=== PATIENT | female | born 1965 | race Caucasian/White ===

== ENCOUNTER 2024-09-11 08:06 | Outpatient (AMB) | payer OTHER, SELFPAY ==
--- OUTSIDE RECORDS SUMMARY | 2024-09-11 08:11 | XMS_ITS | Continuity of Care Document ---
Author Organization [facility] Address [address] [facility] [address] [place], [place] Phone [phone] Care Team Providers Care Oven Equipment Repairer Name Role Phone Radha Randle MD Care Team Information Receiv er Unavailable MCKENZIE AGUILAR M.D. Care Team Information Rec eiver Unavailable Radha Randle MD Primary Care Physician Unava ilable Problems Active Problems Provider Date Simple goiter Mckenzie Aguilar M.D. Onset: 0 02/14/2024 Essential hypertension Mckenzie Aguilar M.D. O nset: 01/22/2017 Hyperlipidemia Mckenzie Aguilar M.D. Onset: 0 10/11/2014 Diabetes mellitus Mckenzie Aguilar M.D. Onset: 10/11/2014 Pure hypercholesterolemia Pedro Pablo Freeman Onset: 10/11/2014 Social History Type Date Description Comments Sex Unknown Allergies and adverse reactions Active Allergies Criticality Reaction Severity Comments Date Statins Unable to assess criticality ache 10/11/2014 Lisinopril Unable to assess criticality cough 10/11/2014 Sulfa Antibiotics Unable to assess criticality 06/18/2016 Ezetimibe Unable to assess criticality achiness Severe 12/23/2018 Repatha Unable to assess criticality URI sxs x1mo 10/04/2023 Medications Active Medications SIG Qnty Indications Order ing Provider Date Ozempic (1 MG/Dose)4mg/3ML Solution Pen-Inject Inject 1 MG Subcutaneously Every Week 3units Mckenzie Aguilar M.D. 12/27/2023 Skin Prep WipesMisc use 2 pads apply to area for bandage daily 50units E11.8 Mckenzie Aguilar M.D. 02/05/2021 Vihjzriwqry3sm Tablets Take 1/2 To 1 Tablet By Mouth Every Day as Needed 90tabs Mckenzie Aguilar M.D. 12/28/2018 Freestyle Lite Blood Glucose Monitoring SystemDevice uad 1units E11Veda Aguilar M.D. 12/23/2018 Freestyle Lite TestStrips 1 strip every day 100units E11.Willard Aguilar M.D. 12/23/2018 Metoprolol Xbxblqkb94ys Tablets TK 1 T PO bid Unknown Aspirin Ec81mg Tablets DR 1 by mouth every day 30tabs Unknown 0 000 Multi Vitamin DailyTablets 1 by mouth every day Unknown 000 Metformin NOA555ly Tablets take 1 tablet by mouth 3 times a day 270tabs Mckenzie Aguilar M.D. Tumeric body aches Unknown 0 Losartan Fygwwbtiv127nz Tablets 1 by mouth every day Unknown 0 000 History Medications Jahbgdrdg9up/0.5ML Solution Pen-Inject inject 3 mg subcutaneously once a week 2ml E11.8 Mckenzie Aguilar M.D. 12/16/2023 - 02/14/2024 Bpyhrwadd2nu/0.5ML Solution Pen-Inject inject 3 mg subcutaneously once a week 6ml Mckenzie Aguilar M.D. 11/05/2023 - 02/14/2024 Trulicity4.5mg/0.5ML Solution Pen-Inject 4.5mg once a week 2ml E11.8 Mckenzie Aguilar M.D. 07/09/2023 - 12/16/2023 Fzgvoti277ys/ml Soln Prefill Syringe inject subcutaneously 140mg every month 1ml E78.5 Mckenzie Aguilar M.D. 07/09/2023 - 10/04/2023 E11.8 I25.9 Gnbeeccb819co/ml Solution Auto-Inject inject one pen (150mg) subcutaneously every 2 weeks 6ml E78.5 Mckenzie Aguilar M.D. 07/08/2023 - 07/09/2023 Ohoxbiecc9uo/0.5ML Solution Pen-Inject inject 3.0mg subcutaneously once a week 6ml E11.8 Mckenzie Aguilar M.D. 05/24/2023 - 07/09/2023 Iiolwarz26pu/ml Solution Auto-Inject inject one pen (75mg) subcutaneously every 2 weeks 2ml E78.Reinier Aguilar M.D. 02/15/2023 - 07/08/2023 Ozempic (1 MG/Dose)2mg/1.5ML Solution Pen-Inject 1mg subcutaneously every week 9ml E11Ruby8 Mckenzie Aguilar M.D. 10/11/2019 - 01/12/2020 Jewuzsqjo78xd Tablets Take 1 Tablet By Mouth Once A Day 30tabs Honey.Reinier Aguilar M.D. 04/12/2019 - 01/12/2020 Trulicity1.5mg/0.5ML Solution Pen-Inject Inject 1.5MG Subcutaneously Every Week 6ml E11.8 Mckenzie Aguilar M.D. 12/26/2018 - 05/24/2023 Losartan Zcmnrqvsa24im Tablets 1 by mouth every day Mckenzie Aguilar M.D. 12/23/2018 - 10/04/2023 Nthjosi9nw/Dose Solution Pen-Inject inject 1mg once a week 9ml E11Ruby8 Mckenzie Aguilar M.D. 12/23/2018 - 12/26/2018 Trulicity0.75mg/0.5ML Solution Pen-Inject 0.75 mg subcutaneous every week 6units E11Veda Aguilar M.D. 10/19/2016 - 12/23/2018 Sczqmwqac80he Tablets Take 1 Tablet By Mouth Once A Day 30tabs Sanju Aguilar M.D. 09/25/2016 - 12/23/2018 Zultt74df Tablets take 1 tablet by mouth once a day 30tabs Sanju Aguilar M.D. 06/18/2016 - 09/25/2016 Fgvrhtsgnwn2cp Tablets Take 1 Tablet By Mouth Daily 90tabs Mckenzie Aguilar M.D. 01/21/2016 - 06/18/2016 Mvit Umu [place] in [place] Aime Aguilar M.D. 12/18/2015 - 06/18/2016 Nvjgsom5cz Tablets 1 by mouth every day-no substitution. 90tabs E78.5 Mckenzie Aguilar M.D. 12/18/2015 - 10/19/2016 Njuqswt62rr Tablets take 1 tablet by mouth daily. E78.5 . 10/11/2014 - 12/18/2015 Idtrjdogzau7us Tablets Take 1 Tablet By Mouth Daily 90tabs Mckenzie Aguliar M.D. 02/16/2014 - 12/18/2015 Coq10 Gummies Bsfca92bw Chewtabs ?amt Unknown 0 - 02/14/2024 Plexus diet med drink E11.8 Unknown - 11/10/2022 Krill Ocl095so Capsules 1/d Unknown - 11/10/2022 Mycwupsh687kh Capsules 1/d Unknown - 12/23/[address] SEALS 1 C PO qd Unknown - 10/19/2016 Doxycycline Chpcyhpnkwa231ha Capsules Unknown - 06/18/2016 Mvit/[place] Epa/Cell Healy/Provexcv/Recover AlMela Facundo packet of pills each night Unknown - 06/18/2016 Mduzgvedyv262aq Capsules Annabel Randle - 10/10/2014 Uwkhbuj50iz Tablets take 1 tablet by mouth daily. Annabel Randle - 10/11/2014 Doxycycline Vfrywvl839wy Tablets Unknown - 10/10/2014 Losartan Lrvhnnhvc27kl Tablets 1 by mouth every day Unknown - 12/23/2018
--- OUTSIDE RECORDS SUMMARY | 2024-09-11 08:11 | XMS_ITS | Data Portability ---
Author Organization [facility] [address] [place] [address] Assessment No assessment recorded. Plan of Treatment Reminders Order Date Submit Date Provider Last Modified By Organization Details Last Modified Time Details Appointments None recorded. Lab None recorded. Referral None recorded. Procedures None recorded. Surgeries None recorded. Imaging None recorded. Medication Orders clindamycin phosphate 1 % topical solution [address]/Pharmacy [id number], [address] [place] [address], [id number], 3 14:02:12 cephalexin 500 mg capsule 2022 023 [facility]/Pharmacy #[id number], [address] [place] [address], [id number], 3 08:49:08 mupirocin 2 % topical ointment 2022 023 [facility]/Pharmacy [id number], [address] [place] [address], [id number], 3 08:49:09 Patient TargetsNo targets recorded. Patient Instructions Encounter Date Encounter Id Patient Instructions Last Modified By Organization Details Last Modified Time 02/09/2023 [id number] skin abscess: care instructions [email or web address] Not available 02/09/2023 08:49:14 cellulitis: care instructions [email or web address] Not available 02/09/2023 08:49:14 Reason for Referral None Reported. Problems Name Problem SNOMED Code Status Onset Date Resolution Date Notes Provider Name and Address Organization Details Recorded Time Diabetes mellitus 32233778 Active 2022 [facility] 3 08:19:53 Hypertensive disorder 80059005 Active 2022 Soraida Hahnlexie rae PA - [facility] 3 08:19:59 Problem Notes None recorded. Medical Equipment None Reported. Allergies Allergen ID Allergen Name Allergen Category Reaction Reaction Severity Criticality Documentation Date Start Date Code Code System Note Provider Name and Address Organization Details Recorded Time 141913 Substance with sulfonami de structure and antibacte rial mechanism of action (substanc e) medicatio n hives Not available Not available 02/09/2023 [id number] SNOMED Soraida Degroot null, PA - [facility] 3 08:19:05 Medications Name Sig Start Date Stop Date Status Note LastModified by Organization Details LastModified Time losartan 50 mg tablet TAKE 1 TABLET BY MOUTH EVERY DAY active Not Available Not Available No t Available amoxicillin 500 mg capsule TAKE 1 CAPSULE BY MOUTH EVERY 6 HOURS UNTIL GONE. 02/09 completed Not Available Not Available Not Available metformin 500 mg tablet TAKE 1 TABLET BY MOUTH 3 TIMES A DAY. active Not Available Not Available No t Available glimepiride 1 mg tablet TAKE 1/2 TO 1 TABLET BY MOUTH EVERY DAY NEEDED active Not Available Not Available No t Available cephalexin 500 mg capsule Take 1 capsule 3 times a day by oral route for 10 days. 2022 active Not Available Not Available Not Avai lable mupirocin 2 % topical ointment Apply 1 applicati on 3 times a day by topical route for 10 days. 2022 active Not Available Not Available Not Avai lable cefuroxime axetil 500 mg tablet TAKE 1 TABLET BY MOUTH TWICE DAILY FOR 4 DAYS WITH FOOD 02/09 completed Not Available Not Available Not Available albuterol sulfate HFA 90 mcg/actuati on aerosol inhaler INHALE 2 PUFF USING INHALER EVERY 4-6 HOURS NEEDED FOR COUGH active Not Available Not Available No t Available doxycycline hyclate 100 mg tablet TAKE 1 TABLET BY MOUTH TWICE A DAY FOR 10 DAYS 02/09 completed Not Available Not Available Not Available amoxicillin 875 mg-potassiu m clavulanate 125 mg tablet TAKE 1 TABLET BY MOUTH TWICE A DAY FOR 10 DAYS 02/09 completed Not Available Not Available Not Available clindamycin phosphate 1 % topical solution APPLY 1 APPLICATI ON TOPICALLY TWICE A DAY FOR 10 DAYS active Not Available Not Available No t Available metoprolol tartrate 25 mg tablet TAKE 1 TABLET BY MOUTH TWICE A DAY active Not Available Not Available No t Available aspirin active Not Available Not Avail able Not Available FreeStyle Lite Strips TEST TWICE A DAY DX: E11.9 active Not Available Not Available No t Available Trulicity 1.5 mg/0.5 mL subcutaneou s pen injector INJECT 1.5MG SUBCUTANE OUSLY EVERY WEEK active Not Available Not Available No t Available Vitals Date Recorded Body height Provider Name an d Address Organization Details Last Updated DateTime 02/09/2023 157.48 cm Soraida Avoca PA - [facility] 0 02/09/2023 08:18:51 Date Recorded Body mass index (BMI) Body weight Provider Name and Address Organization Details Last Updated DateTime 02/09/2023 35.1 kg/m2 44241.74 g Soraida Avoca PA - [facility] 02/09/2023 08:18:55 Date Recorded Oxygen saturation Oxygen saturation in Arterial blood by Pulse oximetry Provider Name and Address Organization Details Last Updated DateTime 02/09/2023 99 % 99 % Soraida Avoca PA - [facility] 02/09/2023 08:21:44 Date Recorded Pain severity - 0-10 verbal numeric rating [Score] - Reported Provider Name and Address Organization Details Last Updated DateTime 02/09/2023 10 Soraida Avoca PA - [facility] 0 02/09/2023 08:21:48 Date Recorded Heart rate Provider Name an d Address Organization Details Last Updated DateTime 02/09/2023 79 /min Soraida Zane PA - [facility] 0 02/09/2023 08:21:55 Date Recorded Respiratory rate Provider Name a nd Address Organization Details Last Updated DateTime 02/09/2023 20 /min Soraida Zane PA - [facility] 0 02/09/2023 08:21:58 Date Recorded Body temperature Provider Name a nd Address Organization Details Last Updated DateTime 02/09/2023 98.5 [degF] Soraida Zane PA - [facility] 02/09/2023 08:22:04 Date Recorded Systolic blood pressure Diastolic blood pressure Provider Name and Address Organization Details Last Updated DateTime 02/09/2023 141 mm[Hg] 85 mm[Hg] Soraida Degroot PA - [facility] 02/09/2023 08:21:42 Social History Question Answer Notes LastModified by Organizat ion Details LastModified Time Tobacco Smoking Status Current Every Day Smoker Soraida rae, PA - [facility] 02/09/2023 08:20:20 What Is Your Level Of Alcohol Consumption? None Information not available 02/09/2023 Have You Had Direct Contact, Or Contact During Intimacy, With Monkeypox Rash, Scabs, Or Body Fluids From A Person With Monkeypox? No Information not available 02/09/2023 How Much Tobacco Do You Smoke? 0.5 PPD Information not available 02/09/2023 Do You Use Any Illicit Or Recreational Drugs? No Information not available 02/09/2023 Have You Recently Traveled Abroad? No Information not available 02/09/2023 Do You Or Have You Ever Used Any Other Forms Of Tobacco Or Nicotine? No Information not available 02/09/2023 Sex: Unknown Functional Status None recorded. Mental Status None recorded. Family History Relationship Description Onset Age of this Age Resolved Age Notes LastModified by Organization Details LastModified Time Father No current problems or disability Not available 02/09 08:20:02 Mother No current problems or disability Not available 02/09 08:20:02 Medical History No medical history recorded. Gynecological History Statement/Question Response Is there any chance of ? No LMP N/A Obstetrics History GPAL:G 0 P 0 0 0 0 Immunizations Vaccine Type Date Status Note Provider Nam e and Address Organization Details Recorded Time COVID-19, mRNA, LNP-S, PF, 30 mcg/0.3 mL dose 11/09/2020 completed Soraida Avoca null, PA - [facility] 02/09/2023 08:19:10 COVID-19, mRNA, LNP-S, PF, 30 mcg/0.3 mL dose 11/30/2020 completed Soraida Avoca null, PA - [facility] 02/09/2023 08:19:10 COVID-19, mRNA, LNP-S, PF, 30 mcg/0.3 mL dose 06/03/2021 completed Soraida Zane null, PA - [facility] 02/09/2023 08:19:10 Influenza, split virus, quadrivalent, PF 05/15/2021 completed Soraida Zane null, PA - [facility] 02/09/2023 08:19:10 Past Encounters Encounter ID Performer Location Encounter Start Date Encounter Closed Date Diagnosis/Indication Diagnosis SNOMED-CT Code Diagnosis ICD10 Code Diagnosis Note [id number] [address] [address] 06/07/2022 11:50:25 06/07/2022 12:43:05 [id number] Jak Mensah MD [address] [address] 02/09/2023 08:08:40 02/09/2023 08:46:53 Abscess [id number] L02.91 Use the topical mupirocin on the area of the right groin.Very important to use warm compressed 4 times per day Please follow up with PCP or Urgent Care in 3-5 days if no improvemen t or if any new symptoms occur that are concerning . 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 the topical Cleomycin is helpful with early symptoms to prevent worsening. Can use in axilla or groin. Health Concerns Section Related Observation LastModified by Organization Detai ls LastModified Time None Recorded Concern Status LastModified by Organization Details LastModified Time None Recorded Advance Directives Directive None Recorded Payers Encounter Date Sequence Insurance Name Policy Number Policy Kinsey Covered Member ID Kinsey Member ID Guarantor Name 06/07/2022 1 [facility] [id number] Sera Valentine [id number] Sera Valentine 02/09/2023 1 [facility] [id number] Sera Valentine [id number] Sera Valentine Notes Date Note Type Note Provider Name and Address Organization Details Recorded Time 02/09/2023 text/html Skin Redness UCReported bypatient.Quality :painful;erythema tous;raised;warm Severity:worsenin g Onset:gradual onset Symptoms:no fever; no nausea; no vomiting;swelling Notes:6 days right groin. History of abscesses Jak Mensah [facility] [address] [facility] [place], [address], [place] - [facility] 02/10/2023 14:04:32 OBGyn Episode No OBEpisode recorded.
--- NOTE | 2024-09-11 11:53 | A.OFFVIS_ITS ---
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 BMI 35.0 Allergies Sulfa (Sulfonamide Antibiotics) Allergy (Mild, Verified 09/11/24 11:53) itchy Medication List - Last Reconciled 09/11/24 by Sarbjit Sloan MD acetaminophen PO aspirin (Adult Aspirin Regimen) 81 mg PO DAILY coenzyme Q10 200 mg PO DAILY [k2 PO] losartan 50 mg PO DAILY [magnesium PO] metformin 500 mg PO BID metoprolol tartrate 25 mg PO BID semaglutide (Ozempic) 1 mg subcut QWEEK [vitamin d3 PO] HPI HPI TV EKG TECH SWL BMI 35.0: Details: Start time: 11.50am, End time: 12.25pm ?I spent 30 minutes speaking with the patient on the phone plus an additional 5 minutes reviewing and updating records for a total of 35 minutes HPI Comments Details: Previous weight loss efforts: self diets, Haritha PERLA Wakes up: 4.30am, Sleeps: 9am Breakfast: (granola bar and yogurt) Lunch: 12pm (chips and sandwich) Dinner: 5-7pm (steak, pork chops, meat, potatoes) Snacks: 3-4pm (fruits and cookies) Exercise: none Fluids: Coffee (3 cups/day with stevia and creamer), tea: unsweetened iced tea 1 bottle per day, soda: none, juice: none, ETOH: none PFSH Medical History (Updated 09/11/24 @ 12:16 by Sarbjit Sloan MD) GERD (gastroesophageal reflux disease) Non-insulin dependent type 2 diabetes mellitus DJD (degenerative joint disease) Hyperlipidemia Hypertension History of [place] (myocardial infarction) CAD (coronary artery disease) BMI 35.0-35.9,adult Obesity Surgical History (Updated 09/05/24 @ 15:51 by Kristi Richard CMA) Hx of heart artery stent Hx of carpal tunnel repair Family History (Updated 09/05/24 @ 15:52 by Kristi Richard CMA) Mother No problems noted. Father Renal cancer Diabetes Heart problem Social History (Updated 09/05/24 @ 15:56 by Kristi Richard CMA) Alcohol intake: never Patient Tobacco Use Status: Current everyday Tobacco user Tobacco use type: Cigarette Cigarettes Per Day: 15 Telehealth Telehealth Telehealth Platform: Telephone Location of provider rendering services: practice address Location of patient: address on file Patient Identification confirmed using: Name, : Yes Telehealth method: voice only Patient verbally consented to treatment: Yes Patient verbally consented to billing insurance company: Yes Patient informed of any privacy concerns related to visit: Yes Minutes spent on Phone/Video with Pt.: 35 Assessment & Plan Assessment & Plan (1) Obesity: Code(s): E66.9 - Obesity, unspecified Category: Medical Qualifiers: Obesity type: unspecified obesity type Obesity classification: adult class 2 (BMI 35 - 39.9) Serious obesity comorbidity presence: without serious comorbidity Body mass index: BMI 35.0-35.9 Qualified Code(s): E66.812 - Obesity, class 2; Z68.35 - Body mass index [BMI] 35.0-35.9, adult Plan: 1.? Plan for lap sleeve gastrectomy. If diaphragmatic or ventral hernias are present at time of surgery, these will be repaired laparoscopically as well. I emphasized the importance of close follow-up, adherence to instructions and good communication. The surgery does not replace the need to change your lifestlyle which is the cause of the obesity problem. The surgery provides the motivation to try again to change your lifestyle, it reduces the appetite and make the transition to a better lifestyle easier and doubles the amount of weight you would lose compared to doing the lifestyle change without the surgery. You will need to be on a liquid diet with protein shakes for 2 weeks before surgery to maximize weight loss and boost your nutritional status to recover better from surgery and also for the first two weeks after surgery to let the stomach heal before we introduce other foods. After the first 2 weeks we will introduce protein bars and soft foods like scrambled eggs, cottage cheese and yogurt and after the 6th week will introduce meat, fish and cooked vegetables in small amounts. Over time you should be able to eat everything in small amounts. Side effects like nausea, vomiting, heartburn or abdominal pain are not common in the practice unless you are not following in the practice. This operation requires lifetime commitment to following in our practice and communication with me. You will much less weight and experience side effects if you don?t communicate or not following in the practice. Complications are rare and in our practice is about 1/10 of the national average. However, you can develop bleeding that may require transfusion (hasn?t happened for year in the practice), you may from complications (we did not have any deaths in the practice) and infections. Infections are usually a result of breakdown in c ommunication or not understanding or following directions correctly. They are difficult to treat, they can happen during the first 6 weeks, they may require to be in the hospital for weeks or even months, not being able to eat by mouth and you may have drains and surgeries to try and correct the issue. Other risks and complications include possible conversion to an open procedure, leaks, small bowel obstruction, blood clots, cardiac, or pulmonary complications, as terminal makeup operator complications such as ulcers, insufficient weight loss and vitamin deficiencies. 2. You will receive a link of our software mercedes to generate an individualized nutritional and exercise plan specific for you. Please send me a screenshot of the plans you will generate Meal to include lean meat (beef, fish, pork, turkey, chicken), or andorran yogurt, or egg whites, or beans with a salad with olive oil and fruits (berries, pears, apples, kiwi). Avoid salt, breads, potatoes, rice, pasta, desserts. ?3. If you choose shakes, each shake would be drunk slowly, like coffee in a period of 2 hours. ?4. If you choose bars, cut each bar in 4 pieces and eat each piece in 30min ?to make each bar last 2 hours. ?5. I emphasized the importance of measuring accurately the food portion and measure it when serving the food in plate ?6. The meal portions include a specific number of forks of meat and salad. You always eat the meat portion but you can replace up to half of salad/vegetables portion with rice, potatoes or pasta, or a fruit ?if you like. The less you do it the better weight loss will be. ?7. One full-size fork is what it can be scooped on the fork without falling aside and not what can be bit with the fork. Use regular forks like those you find in a typical restaurant. ?8.? Please buy the body composition scale we discussed and send me weight measurements as soon as possible and then once a week. Always include your diet and exercise plan. 9. The best choice would be to purchase a stationary bike, elliptical or treadmill at home that can track calories. Let me know if you do so I can give you an exercise plan. ?10.?It is important of avoiding and for at least 18 months postoperatively and has been discussed at the infosession. ?11. Goal is to lose at least 1.5-2lbs per week ?12. Goal to lose 10% of your weight before surgery, which is about 18lbs. Ultimate weight goal: 167lbs before surgery 13. Please follow the diet plan exactly without any change. If you don't like something about the plan or you feel hungry you need to communicate with me so I can help you revise the plan. You should not change the plan yourself. 14. To be scheduled for EGD due to the history of sleeve gastrectomy and anemia. The possibility of biopsies was discussed. Patient needs to avoid use of NSAIDs and aspirin for 1 week prior to EGD. You must be on liquids only the day before your endoscopy. Risks of perforation and bleeding was discussed with the patient. This will be an outpatient procedure with IV sedation. Orders: Orders Hemoglobin A1c Today E11.9 - Type 2 diabetes mellitus without complications, E66.9 - Obesity, unspecified, E78.5 - Hyperlipidemia, unspecified, I10 - Essential (primary) hypertension, I25.10 - Atherosclerotic heart disease of [place] coronary artery without angina pectoris, K21.9 - Gastro-esophageal reflux disease without esophagitis, Z68.35 - Body mass index [BMI] 35.0-35.9, adult H Pylori Breath Test Today E11.9 - Type 2 diabetes mellitus without complications, E66.9 - Obesity, unspecified, E78.5 - Hyperlipidemia, unspecified, I10 - Essential (primary) hypertension, I25.10 - Atherosclerotic heart disease of [place] coronary artery without angina pectoris, K21.9 - Gastro- esophageal reflux disease without esophagitis, Z68.35 - Body mass index [BMI] 35.0-35.9, adult Lipid Panel Today E11.9 - Type 2 diabetes mellitus without complications, E66.9 - Obesity, unspecified, E78.5 - Hyperlipidemia, unspecified, I10 - Essential (primary) hypertension, I25.10 - Atherosclerotic heart disease of [place] coronary artery without angina pectoris, K21.9 - Gastro-esophageal reflux disease without esophagitis, Z68.35 - Body mass index [BMI] 35.0-35.9, adult Vitamin B12 and Folate Today E11.9 - Type 2 diabetes mellitus without complications, E66.9 - Obesity, unspecified, E78.5 - Hyperlipidemia, unspecified, I10 - Essential (primary) hypertension, I25.10 - Atherosclerotic heart disease of [place] coronary artery without angina pectoris, K21.9 - Gastro- esophageal reflux disease without esophagitis, Z68.35 - Body mass index [BMI] 35.0-35.9, adult Zinc Today E11.9 - Type 2 diabetes mellitus without complications, E66.9 - Obesity, unspecified, E78.5 - Hyperlipidemia, unspecified, I10 - Essential (primary) hypertension, I25.10 - Atherosclerotic heart disease of [place] coronary artery without angina pectoris, K21.9 - Gastro-esophageal reflux disease without esophagitis, Z68.35 - Body mass index [BMI] 35.0-35.9, adult C Reactive Protein Today E11.9 - Type 2 diabetes mellitus without complications, E66.9 - Obesity, unspecified, E78.5 - Hyperlipidemia, unspecified, I10 - Essential (primary) hypertension, I25.10 - Atherosclerotic heart disease of [place] coronary artery without angina pectoris, K21.9 - Gastro- esophageal reflux disease without esophagitis, Z68.35 - Body mass index [BMI] 35.0-35.9, adult Vitamin B1 Today E11.9 - Type 2 diabetes mellitus without complications, E66.9 - Obesity, unspecified, E78.5 - Hyperlipidemia, unspecified, I10 - Essential (primary) hypertension, I25.10 - Atherosclerotic heart disease of [place] coronary artery without angina pectoris, K21.9 - Gastro-esophageal reflux disease without esophagitis, Z68.35 - Body mass index [BMI] 35.0-35.9, adult TSH reflex Free T4 Today E11.9 - Type 2 diabetes mellitus without complications, E66.9 - Obesity, unspecified, E78.5 - Hyperlipidemia, unspecified, I10 - Essential (primary) hypertension, I25.10 - Atherosclerotic heart disease of [place] coronary artery without angina pectoris, K21.9 - Gastro- esophageal reflux disease without esophagitis, Z68.35 - Body mass index [BMI] 35.0-35.9, adult Ferritin Today E11.9 - Type 2 diabetes mellitus without complications, E66.9 - Obesity, unspecified, E78.5 - Hyperlipidemia, unspecified, I10 - Essential (primary) hypertension, I25.10 - Atherosclerotic heart disease of [place] coronary artery without angina pectoris, K21.9 - Gastro-esophageal reflux disease without esophagitis, Z68.35 - Body mass index [BMI] 35.0-35.9, adult Vitamin D 25-OH Total Today E11.9 - Type 2 diabetes mellitus without complications, E66.9 - Obesity, unspecified, E78.5 - Hyperlipidemia, unspe cified, I10 - Essential (primary) hypertension, I25.10 - Atherosclerotic heart disease of [place] coronary artery without angina pectoris, K21.9 - Gastro- esophageal reflux disease without esophagitis, Z68.35 - Body mass index [BMI] 35.0-35.9, adult ECG 12 lead EKG Today E11.9 - Type 2 diabetes mellitus without complications, E66.9 - Obesity, unspecified, E78.5 - Hyperlipidemia, unspecified, I10 - Essential (primary) hypertension, I25.10 - Atherosclerotic heart disease of [place] coronary artery without angina pectoris, K21.9 - Gastro-esophageal reflux disease without esophagitis, Z68.35 - Body mass index [BMI] 35.0-35.9, adult Insulin Today E11.9 - Type 2 diabetes mellitus without complications, E66.9 - Obesity, unspecified, E78.5 - Hyperlipidemia, unspecified, I10 - Essential (primary) hypertension, I25.10 - Atherosclerotic heart disease of [place] coronary artery without angina pectoris, K21.9 - Gastro-esophageal reflux disease without esophagitis, Z68.35 - Body mass index [BMI] 35.0-35.9, adult Complete Blood Count Auto Diff Today E11.9 - Type 2 diabetes mellitus without complications, E66.9 - Obesity, unspecified, E78.5 - Hyperlipidemia, unspecified, I10 - Essential (primary) hypertension, I25.10 - Atherosclerotic heart disease of [place] coronary artery without angina pectoris, K21.9 - Gastro-esophageal reflux disease without esophagitis, Z68.35 - Body mass index [BMI] 35.0-35.9, adult IRON PROFILE Today E11.9 - Type 2 diabetes mellitus without complications, E66.9 - Obesity, unspecified, E78.5 - Hyperlipidemia, unspecified, I10 - Essential (primary) hypertension, I25.10 - Atherosclerotic heart disease of [place] coronary artery without angina pectoris, K21.9 - Gastro-esophageal reflux disease without esophagitis, Z68.35 - Body mass index [BMI] 35.0-35.9, adult Comprehensive Met. Panel Today E11.9 - Type 2 diabetes mellitus without c omplications, E66.9 - Obesity, unspecified, E78.5 - Hyperlipidemia, unspecified, I10 - Essential (primary) hypertension, I25.10 - Atherosclerotic heart disease of [place] coronary artery without angina pectoris, K21.9 - Gastro-esophageal reflux disease without esophagitis, Z68.35 - Body mass index [BMI] 35.0-35.9, adult Vitamin A Today E11.9 - Type 2 diabetes mellitus without complications, E66.9 - Obesity, unspecified, E78.5 - Hyperlipidemia, unspecified, I10 - Essential (primary) hypertension, I25.10 - Atherosclerotic heart disease of [place] coronary artery without angina pectoris, K21.9 - Gastro-esophageal reflux disease without esophagitis, Z68.35 - Body mass index [BMI] 35.0-35.9, adult US abdomen comp w elastography Today E11.9 - Type 2 diabetes mellitus without complications, E66.9 - Obesity, unspecified, E78.5 - Hyperlipidemia, unspecified, I10 - Essential (primary) hypertension, I25.10 - Atherosclerotic heart disease of [place] coronary artery without angina pectoris, K21.9 - Gastro- esophageal reflux disease without esophagitis, Z68.35 - Body mass index [BMI] 35.0-35.9, adult XR chest 2V Today E11.9 - Type 2 diabetes mellitus without complications, E66.9 - Obesity, unspecified, E78.5 - Hyperlipidemia, unspecified, I10 - Essential (primary) hypertension, I25.10 - Atherosclerotic heart disease of [place] coronary artery without angina pectoris, K21.9 - Gastro-esophageal reflux disease without esophagitis, Z68.35 - Body mass index [BMI] 35.0-35.9, adult [place] upper GI w air Today E11.9 - Type 2 diabetes mellitus without complications, E66.9 - Obesity, unspecified, E78.5 - Hyperlipidemia, unspecified, I10 - Essential (primary) hypertension, I25.10 - Atherosclerotic heart disease of [place] coronary artery without angina pectoris, K21.9 - Gastro-esophageal reflux disease without esophagitis, Z68.35 - Body mass index [BMI] 35.0-35.9, adult Referrals Behavioral Health Referral E11.9 - Type 2 diabetes mellitus without complications, E66.9 - Obesity, unspecified, E78.5 - Hyperlipidemia, unspecified, I10 - Essential (primary) hypertension, I25.10 - Atherosclerotic heart disease of [place] coronary artery without angina pectoris, K21.9 - Gastro- esophageal reflux disease without esophagitis, Z68.35 - Body mass index [BMI] 35.0-35.9, adult Nutrition/Dietitian Referral E11.9 - Type 2 diabetes mellitus without complications, E66.9 - Obesity, unspecified, E78.5 - Hyperlipidemia, u nspecified, I10 - Essential (primary) hypertension, I25.10 - Atherosclerotic heart disease of [place] coronary artery without angina pectoris, K21.9 - Gastro- esophageal reflux disease without esophagitis, Z68.35 - Body mass index [BMI] 35.0-35.9, adult
[2024-09-11 12:04] VITALS: BMI 35.0
== END 2024-09-11 12:26 | disposition home or self-care (01) ==
LOC: HO.HBS 08:06
PROVIDERS: Visit Provider Surgery
DX: E66.812 Obesity, class 2 (principal); Z68.35 Body mass index [BMI] 35.0-35.9, adult
CPT/HCPCS: 98009

== ENCOUNTER → 2024-09-11 08:06 | Outpatient (BNVA) | payer OTHER, SELFPAY | PROVIDERS: Visit Provider Surgery ==

== ENCOUNTER 2024-10-23 09:07 | Outpatient (REF) | payer OTHER, SELFPAY ==
--- NOTE | ~2024-10-23 | US_ITS ---
EXAMINATION: US ABDOMEN COMPLETE WITH LIVER ELASTOGRAPHY HISTORY: E66.9 - Obesity, unspecified TECHNIQUE: Real-time grayscale ultrasound imaging of the abdomen was performed and images were reviewed. COMPARISON: There are no prior studies for comparison. FINDINGS: Liver: The right lobe of the liver measures 13.6 cm in size. The left lobe of the liver measures 8.4 cm in size. The liver demonstrates increased echotexture, consistent with steatosis. No focal mass or intrahepatic biliary ductal dilatation is identified. There is normal hepatopedal flow in the portal vein. Ultrasound elastography of the liver was performed with 10 separate measurements of the liver parenchyma with the patient in the supine position. Measurements were obtained approximately 2 cm below Cristin's capsule and perpendicular to the capsule. Images are of satisfactory quality. The median shear wave velocity is 1.21 m/s. The interquartile range/median (IQR/median) is 0.21. Gallbladder and biliary tree: The gallbladder is unremarkable, without evidence of calculi, wall thickening, or pericholecystic fluid. There is no sonographic Romero sign. The common bile duct is normal in caliber measuring 3 mm. Kidneys: The right kidney measures 10.2 cm in length. The left kidney measures 10.3 cm in length. There is a 4 mm nonobstructing calculus in the interpolar region of the right kidney. There is a 1.2 x 0.8 x 0.9 cm cyst at the lower pole of the left kidney. A 4 mm echogenic focus is noted in the left kidney which is too small to accurately characterize. Pancreas: The pancreatic head, neck, and body are unremarkable. The pancreatic tail is obscured by bowel gas. Spleen: The spleen is normal in size and contour, measuring 9.2 cm in length. Abdominal aorta and inferior vena cava: The visualized portions of the abdominal aorta and inferior vena cava are normal in caliber. There is no free fluid in the abdomen. US/US abdomen comp w elastography IMPRESSION: Hepatic steatosis. The median shear wave velocity is 1.21 m/s, corresponding to a median liver stiffness of 4.51 kPa. The IQR/median value is 0.21. This is indicative of a poor quality data set, and the estimated liver stiffness may be unreliable. Findings are indicative of a normal elastography value with a low likelihood of severe fibrosis or cirrhosis. REFERENCE: Society of Radiologists in Ultrasound Liver Stiffness Thresholds (2020): LIVER STIFFNESS THRESHOLDS: *Shear wave velocity less than 1.3 m/s (Liver Stiffness equal or less than 5 kPa): High probability of being normal. *Shear wave velocity less than 1.7 m/s (Liver Stiffness less than 9 kPa): In the absence of other known clinical signs, rules out compensated advanced chronic liver disease. *Shear wave velocity between 1.7-2.1 m/s (Liver Stiffness 9-13 kPa): Suggestive of compensated advanced chronic liver disease but need further test for confirmation. *Shear wave velocity between 2.1-2.4 m/s (Liver Stiffness 13-17 kPa): Rules in compensated advanced chronic liver disease. *Shear wave velocity greater than 2.4 m/s (Liver Stiffness over 17 kPa): Suggestive of clinically significant portal hypertension. QUALITY OF DATA SET: *IQR/Median value equal or less than 0.15 implies a quality data set. *IQR/Median value over 0.15 implies a poor quality data set. SIGNIFICANT CHANGE FROM PRIOR EXAM: Significant change if liver stiffness measurement is 10% or greater from prior exam. OTHER CONSIDERATIONS: The stage of liver fibrosis may be overestimated in the setting of acute hepatitis, liver inflammation, elevated liver function tests, hepatic vascular congestion, obstructive cholestasis, non-fasting state, and infiltrative diseases such as amyloidosis and lymphoma. In some patients with NAFLD, the liver stiffness thresholds for compensated advanced chronic liver disease may be lower. In causes other than viral hepatitis and NAFLD, liver stiffness thresholds are not well established. Electronically signed by: David Magaña MD 10/23/2024 10:42 AM [facility] [place]
--- NOTE | ~2024-10-23 | XR_ITS ---
EXAMINATION: XR CHEST 2 VIEWS HISTORY: E66.9 - Obesity, unspecified COMPARISON: There are no prior studies for comparison. FINDINGS: PA and lateral views of the chest are submitted. The lungs are expanded and clear. There is no pleural effusion, pneumothorax, or pulmonary vascular congestion. The heart is normal in size. There is degenerative disc disease of the spine. XR/XR chest 2V IMPRESSION: Clear lungs. Electronically signed by: David Magaña MD 10/23/2024 11:03 AM [facility]
--- OUTSIDE RECORDS SUMMARY | 2024-10-23 09:48 | XMS_ITS | Continuity of Care Document ---
Author Organization [facility] Address [address] [place] [address]- Care Team Providers Care Linen Room Custodian Name Role Phone Chiquita Shirley Primary Care Physician Encounter [facility] [place] Date(s): 08/28/24 - 09/27/24 [facility] [address] [place], [place] [address] Encounter Type: Triage Allergies, Adverse Reactions, Alerts Substance Criticality Severity Reaction Reaction Severity Status sulfADIAZINE Red & Rash Active lisinopril cough Active Medications aspirin 81 mg oral tablet, chewable 1 tablet = 81 mg, Chew, Daily, # 30 tablet, 2 Refills, Maintenance, 09/24/11 11:01:54 AM EST, Chew Tablet Start Date: 09/24/11 Stop Date: 12/23/11 Status: Ordered Quantity: 30.0 Unit: tablet Repeat number: 3 Coenzyme Q10 = 200 mg, By Mouth, Daily, 0 Refills, Maintenance, 07/13/13 3:21:47 PM EST Start Date: 07/13/13 Status: Ordered Repeat number: 1 Crestor Tablet = 10 mg, By Mouth, Daily at bedtime, 0 Refills, Maintenance, 07/13/13 3:22:10 PM EST Start Date: 07/13/13 Status: Ordered Repeat number: 1 Glimepiride = 2 mg, By Mouth, Daily, 0 Refills, Maintenance, 07/13/13 3:22:01 PM EST Start Date: 07/13/13 Status: Ordered Repeat number: 1 losartan 25 mg oral tablet 1 tablet = 25 mg, By Mouth, Daily, # 90 tablet, 3 Refills, Maintenance, 11/30/13 4:23:48 PM EDT, [facility] [address] Start Date: 11/30/13 Stop Date: 11/25/14 Status: Ordered Quantity: 90.0 Unit: tablet Repeat number: 4 metformin 500 mg oral tablet 1 tablet = 500 mg, By Mouth, 2 times a day, # 180 tablet, 0 Refills, Maintenance, 09/23/11 1:24:06 PMEST, Tablet Start Date: 09/23/11 Status: Ordered Quantity: 180.0 Unit: tablet Repeat number: 1 metoprolol 25 mg oral tablet 1 tablet = 25 mg, By Mouth, 2 times a day, # 60 tablet, 2 Refills, Maintenance, 09/24/11 11:02:24 AM EST, Tablet Start Date: 09/24/11 Stop Date: 12/23/11 Status: Ordered Quantity: 60.0 Unit: tablet Repeat number: 3 Problem List Condition Confirmation Course Effective Dates Status H ealth Status Informant Coronary arteriosclerosis Confirmed Active Patient Care team information Care Team Personnel Name: Chiquita Shirley Position: [facility] Outreach Member Role: PCP Address: [address] [place] [address] [place] [address]- Telecom: Name: Bernadette Storey [place] Position: [facility] Outreach Member Role: Lifetime Consulting Physician Name: Moody Lucas MD Position: [facility] Cardiology MD Member Role: Lifetime Consulting Physician Address: [address] [place] [address] [facility] [place], [place] [address] Telecom: Care Team Related Persons Name: JACQUELINE KIM Name: GOKUL CASTLE Insurance Providers Guarantor name: MAIKEL CAREY [employer] Plan Information #: 1 Payer: [employer] FF NON P HMO Member Number: NA Policy Number: NA Group Number: NA
--- OUTSIDE RECORDS SUMMARY | 2024-10-23 09:48 | XMS_ITS | Data Portability ---
Author Organization [facility] [address] Address [address] [place] [address] Assessment No assessment recorded. Plan of Treatment Reminders Order Date Submit Date Provider Last Modified By Organization Details Last Modified Time Details Appointments None recorded. Lab None recorded. Referral None recorded. Procedures None recorded. Surgeries None recorded. Imaging None recorded. Medication Orders clindamycin phosphate 1 % topical solution [address]/Pharmacy #[id number], [address] [place] [address], [id number], 3 14:02:12 cephalexin 500 mg capsule 2022 023 [facility]acy #[id number], [address] [place] [address], [address], 3 08:49:08 mupirocin 2 % topical ointment 2022 023 [facility]/Pharmacy #[id number], [address] [place] [address], [address], 3 08:49:09 Patient TargetsNo targets recorded. Patient Instructions Encounter Date Encounter Id Patient Instructions Last Modified By Organization Details Last Modified Time 02/09/2023 [id number] skin abscess: care instructions [email or web address] Not available 02/09/2023 08:49:14 cellulitis: care instructions [email or web address] Not available 02/09/2023 08:49:14 Reason for Referral None Reported. Problems Name Problem SNOMED Code Status Onset Date Resolution Date Notes Provider Name and Address Organization Details Recorded Time Diabetes mellitus 46267092 Active 2022 [facility] 3 08:19:53 Hypertensive disorder 03049516 Active 2022 Soraida Hahnlexie rae [place] - [facility] 3 08:19:59 Problem Notes None recorded. Medical Equipment None Reported. Allergies Allergen ID Allergen Name Allergen Category Reaction Reaction Severity Criticality Documentation Date Start Date Code Code System Note Provider Name and Address Organization Details Recorded Time 715990 Substance with sulfonami de structure and antibacte rial mechanism of action (substanc e) medicatio n hives Not available Not available 02/09/2023 25911 8003 SNOMED Soraida Degroot null, [place] - [...] t Available Vitals Date Recorded Body height Body mass index (BMI) Body weight Oxygen saturation Oxygen saturation in Arterial blood by Pulse oximetry Pain severity - 0-10 verbal numeric rating [Score] - Reported Heart rate Respiratory rate Body temperature Systolic blood pressure Diastolic blood pressure Provider Name and Address Organization Details Last Updated DateTime 3 157.48 cm 35.1 kg/m2 58275.7 4 g 99 % 99 % 10 79 /min 20 /min 98.5 [degF] 141 mm[Hg] 85 mm[Hg] Soraida LINARES [place] 08:21:42 Social History Question Answer Notes LastModified by Organizat ion Details LastModified Time Tobacco Smoking Status Current Every Day Smoker [facility] [employer] [facility] 02/09/2023 08:20:20 What Is Your Level Of [...] 30 mcg/0.3 mL dose 11/09/2020 completed Soraida Zane null, [place] - [facility] 02/09/2023 08:19:10 COVID-19, mRNA, LNP-S, PF, 30 mcg/0.3 mL dose 11/30/2020 completed Soraida Zane null, [place] - [facility] 02/09/2023 08:19:10 COVID-19, mRNA, LNP-S, PF, 30 mcg/0.3 mL dose 06/03/2021 completed Soraida Trimble null, [place] - [facility] 02/09/2023 08:19:10 Influenza, split virus, quadrivalent, PF 05/15/2021 completed Soraida Zane null, [place] - [facility] 02/09/2023 08:19:10 Past Encounters Encounter ID Performer Location Encounter Start Date Encounter Closed Date Diagnosis/Indication Diagnosis SNOMED-CT Code Diagnosis ICD10 Code Diagnosis Note [id number] [address] [address] 06/07/2022 11:50:25 06/07/2022 12:43:05 [id number] Jak Mensah MD [address] [address] 02/09/2023 08:08:40 02/09/2023 08:46:53 Abscess 223050463 L02.91 Use the topical mupirocin on the area of the right groin.Very important to use warm compressed 4 times per day Please follow up with PCP or Urgent Care in 3-5 days if no improvemen t or if any new symptoms occur that are concerning . 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 the [...] Kinsey Member ID Guarantor Name 06/07/2022 1 [facility] [id number] Sera Valentine [id number] Sera Valentine 02/09/2023 1 [facility] [id number] Sera Valentine [id number] Sera Valentine Notes Date Note Type Note Provider Name and Address Organization Details Recorded Time 02/09/2023 text/html Skin Redness UCReported bypatient.Quality :painful;erythema tous;raised;warm Severity:worsenin g Onset:gradual onset Symptoms:no fever; no nausea; no vomiting;swelling Notes:6 days right groin. History of abscesses Jak Mensah MD [address] [place], [address], [place] - [facility] 02/10/2023 14:04:32 OBGyn Episode No OBEpisode recorded.
--- OUTSIDE RECORDS SUMMARY | 2024-10-23 09:48 | XMS_ITS | Continuity of Care Document ---
Author Organization [facility] Address [address] [facility] [address] [place], [place] Phone [phone] Care Team Providers Care Assistant Sales Center Manager Name Role Phone Radha Randle MD Care [...] daily 50units E11.8 Mckenzie Aguilar M.D. 02/05/2021 Qcmevekucgw1jf Tablets Take 1/2 To 1 Tablet By Mouth Every Day as Needed 90tabs Mckenzie Aguilar M.D. 12/28/2018 Freestyle Lite Blood Glucose Monitoring SystemDevice uad 1units E11Veda Aguilar M.D. 12/23/2018 Freestyle Lite TestStrips 1 strip every day 100units E11.Willard Aguilar M.D. 12/23/2018 Metoprolol Gjnvsayj16wv Tablets TK 1 T PO bid Unknown Aspirin Ec81mg Tablets DR 1 by mouth every day 30tabs Unknown 0 000 Multi Vitamin DailyTablets 1 by mouth every day Unknown 000 Metformin MCG555kf Tablets take 1 tablet by mouth 3 times a day 270tabs Mckenzie Aguilar M.D. Tumeric body aches Unknown 0 Losartan Bbsrnnawi169hr Tablets 1 by mouth every day Unknown 0 000 History Medications Kckmgdcuc1zr/0.5ML Solution Pen-Inject inject 3 mg subcutaneously once a week 2ml E11.8 Mckenzie Aguilar M.D. 12/16/2023 - 02/14/2024 Nlnvqnvgf6wu/0.5ML Solution Pen-Inject inject 3 mg subcutaneously once a week 6ml Mckenzie Aguilar M.D. 11/05/2023 - 02/14/2024 Trulicity4.5mg/0.5ML Solution Pen-Inject 4.5mg once a week 2ml E11.8 Mckenzie Aguilar M.D. 07/09/2023 - 12/16/2023 Gragvtl648xl/ml Soln Prefill Syringe inject subcutaneously 140mg every month 1ml E78.5 Mckenzie Aguilar M.D. 07/09/2023 - 10/04/2023 E11.8 I25.9 Xetgvfkj647aj/ml Solution Auto-Inject inject one pen (150mg) subcutaneously every 2 weeks 6ml E78.5 Mckenzie Aguilar M.D. 07/08/2023 - 07/09/2023 Yypmpymjh3qi/0.5ML Solution Pen-Inject inject 3.0mg subcutaneously once a week 6ml E11.8 Mckenzie Aguilar M.D. 05/24/2023 - 07/09/2023 Otkjmttu96qf/ml Solution Auto-Inject inject one pen (75mg) subcutaneously every 2 weeks 2ml E78.Reinier Aguilar M.D. 02/15/2023 - 07/08/2023 Ozempic (1 MG/Dose)2mg/1.5ML Solution Pen-Inject 1mg subcutaneously every week 9ml E11Ruby8 Mckenzie Aguilar M.D. 10/11/2019 - 01/12/2020 Evkwnsuno94ai Tablets Take 1 Tablet By Mouth Once A Day 30tabs Honey.Reinier Aguilar M.D. 04/12/2019 - 01/12/2020 Trulicity1.5mg/0.5ML Solution Pen-Inject Inject 1.5MG Subcutaneously Every Week 6ml E11.8 Mckenzie Aguilar M.D. 12/26/2018 - 05/24/2023 Losartan Wmexmwywu16aw Tablets 1 by mouth every day Mckenzie Aguilar M.D. 12/23/2018 - 10/04/2023 Qatmjdo7ov/Dose Solution Pen-Inject inject 1mg once a week 9ml E11Ruby8 Mckenzie Aguilar M.D. 12/23/2018 - 12/26/2018 Trulicity0.75mg/0.5ML Solution Pen-Inject 0.75 mg subcutaneous every week 6units E11Veda Aguilar M.D. 10/19/2016 - 12/23/2018 Qpzrpvblb06hk Tablets Take 1 Tablet By Mouth Once A Day 30tabs Sanju Aguilar M.D. 09/25/2016 - 12/23/2018 Fzmwd49lm Tablets take 1 tablet by mouth once a day 30tabs Sanju Aguilar M.D. 06/18/2016 - 09/25/2016 Gyekecafngn6oq Tablets Take 1 Tablet By Mouth Daily 90tabs Mckenzie Aguilar M.D. 01/21/2016 - 06/18/2016 Mvit Umu [place] in [place] Aime Aguilar M.D. 12/18/2015 - 06/18/2016 Ajvfakx4ft Tablets 1 by mouth every day-no substitution. 90tabs E78.5 Mckenzie Aguilar M.D. 12/18/2015 - 10/19/2016 Bxxszng22rd Tablets take 1 tablet by mouth daily. E78.5 . 10/11/2014 - 12/18/2015 Ovosxfadjox8is Tablets Take 1 Tablet By Mouth Daily 90tabs Mckenzie Aguilar M.D. 02/16/2014 - 12/18/2015 Coq10 Gummies Eygcr72yo Chewtabs ?amt Unknown 0 - 02/14/2024 Plexus diet med drink E11.8 Unknown - 11/10/2022 Krill Mpw488sr Capsules 1/d Unknown - 11/10/2022 Jupeadxd303mk Capsules 1/d Unknown - 12/23/[address] SEALS 1 C PO qd Unknown - 10/19/2016 Doxycycline Tarsbpqweee550pg Capsules Unknown - 06/18/2016 Mvit/[place] Epa/Cell Healy/Provexcv/Recover AlMela Facundo packet of pills each night Unknown - 06/18/2016 Ulcxbmbeng002ey Capsules Annabel Randle - 10/10/2014 Lpflcjn03fm Tablets take 1 tablet by mouth daily. Annabel Randle - 10/11/2014 Doxycycline Ryzqbtk843ig Tablets Unknown - 10/10/2014 Losartan Bswfdihop51pt Tablets 1 by mouth every day Unknown - 12/23/2018
--- NOTE | 2024-10-23 10:42 | ECG_ITS ---
Test Reason : OBS Blood Pressure : */* mmHG Vent. Rate : 72 BPM Atrial Rate : 72 BPM P-R Int : 158 ms QRS Dur : 66 ms QT Int : 388 ms P-R-T Axes : 46 19 44 degrees QTcB Int : 424 ms Normal sinus rhythm Normal ECG No previous ECGs available Referred By: Sarbjit Sloan Electronically Signed By: PATRICK LEI MD
[2024-10-23 11:04] LABS: MANUAL DIFF FLAG NO
[2024-10-23 11:17] LABS: Basophils Absolute Auto 0.1 X10*3/uL (0.0-0.2); Basophils Percent Auto 1.1 % (0-2); Eosinophils Absolute Auto 0.4 X10*3/uL (0.0-0.4); Eosinophils Percent Auto 5.1 % (0-4); Imm Gran Abs Auto 0.03 X10*3/uL (0.00-0.03); Imm Gran Pct Auto 0.4 % (0.0-0.4); Lymphocytes Absolute Auto 2.5 X10*3/uL (1.2-4.9); Lymphocytes Percent Auto 31.7 % (20-40); Mean Corpuscular HGB Conc 35.6 g/dl (31.0-35.0); Mean Corpuscular Hemoglobin 30.6 pg (27.0-33.0); Mean Platelet Volume 10.1 fL (9.4-12.3); Monocytes Absolute Auto 0.6 X10*3/uL (0.1-1.2); Monocytes Percent Auto 7.3 % (2-11); Neutrophils Absolute Auto 4.3 x10*3/uL (2.0-8.3); Neutrophils Percent Auto 54.4 % (45-73); Platelet Count 329 X10*3/uL (160-400); Red Blood Count 5.23 X10*6/uL (4.20-5.50)
[2024-10-23 11:30] LABS: Estimated Average Glucose 189 mg/dL; Hemoglobin A1C 268.0159 umol/L; Hemoglobin A1c % 8.2 % (<6.0); Total Hemoglobin (HGBA1C) 4048.0546 umol/L
[2024-10-23 12:17] LABS: Alanine Aminotransferase 29 U/L (0-31); Albumin Level 4.2 g/dL (3.5-5.0); Alkaline Phosphatase 98 U/L (39-117); Anion Gap 15 (12-20); Aspartate Amino Transferase 23 U/L (5-31); Bilirubin Total 0.4 mg/dL (0.0-1.0); Blood Urea Nitrogen 21 mg/dL (9-16); C Reactive Protein 0.84 mg/dL (< or = 0.50); Calcium 9.9 mg/dL (8.4-10.2); Carbon Dioxide 23 mmol/L (22-29); Chloride 104 mmol/L (96-108); Cholesterol 228 mg/dL (<200); Estimated Glomerular Filt Rate > 60; Glucose Random 180 mg/dL (60-115); HDL Cholesterol 32 mg/dL (>40); Iron 63 mcg/dL (30-160); LDL Cholesterol Calculated 134 mg/dL (<100); Percent Iron Saturation 22 % (15-50); Potassium 4.7 mmol/L (3.3-5.1); Sodium 137 mmol/L (135-145); Total Iron Binding Capacity 293 mcg/dL (228-428); Total Protein 7.9 g/dL (6.5-8.0); Triglycerides 311 mg/dL (<150); Unsaturated Iron Binding 230 ug/dL
[2024-10-23 12:29] LABS: Ferritin 186 ng/mL (10-250); TSH reflex Free T4 0.65 uIU/mL (0.32-4.0); Vitamin D 25-OH Total > 154.2 ng/mL (>30)
[2024-10-23 12:37] LABS: Folate 14.1 ng/mL (> or = 4.0); Vitamin B12 975 pg/mL (200-900)
[2024-10-23 12:44] LABS: Insulin 14 uU/mL (2-29)
[2024-10-25 23:13] LABS: Zinc 74 mcg/dL (60-130)
[2024-10-26 11:28] LABS: Vitamin A 69 mcg/dL (38-98)
[2024-10-30 14:39] LABS: Vitamin B1 9 nmol/L (8-30)
== END 2024-10-23 09:08 | disposition home or self-care (01) ==
LOC: HO.US 09:07
PROVIDERS: PCP Nurse Practitioner Family; Visit Provider Surgery
DX: E66.9 Obesity, unspecified (principal); Z68.35 Body mass index [BMI] 35.0-35.9, adult; E11.9 Type 2 diabetes mellitus without complications; E78.5 Hyperlipidemia, unspecified; I25.10 Atherosclerotic heart disease of native coronary artery without angina pectoris; I10 Essential (primary) hypertension; K21.9 Gastro-esophageal reflux disease without esophagitis
CPT/HCPCS: 36415; 71046; 76700; 76981; 80053; 80061; 82306; 82607; 82728; 82746; 83036; 83525; 83540; 84425; 84443; 84590; 84630; 85025; 86140; 93005

== ENCOUNTER → 2024-10-23 09:08 | Outpatient (BNV) | payer OTHER, SELFPAY | PROVIDERS: PCP Nurse Practitioner Family; Visit Provider Radiology Diagnostic Radiology | DX: K76.0 Fatty (change of) liver, not elsewhere classified (principal); E66.9 Obesity, unspecified; Z68.35 Body mass index [BMI] 35.0-35.9, adult | CPT/HCPCS: 71046; 76700 ==

== ENCOUNTER → 2024-10-23 10:42 | Outpatient (BNV) | payer OTHER, SELFPAY | PROVIDERS: PCP Nurse Practitioner Family; Visit Provider Internal Medicine Cardiovascular Disease | DX: I25.10 Atherosclerotic heart disease of native coronary artery without angina pectoris (principal); E78.5 Hyperlipidemia, unspecified; E66.9 Obesity, unspecified; Z68.35 Body mass index [BMI] 35.0-35.9, adult | CPT/HCPCS: 93010 ==

== ENCOUNTER → 2024-11-03 13:54 | Outpatient (BNVA) | payer OTHER, SELFPAY | PROVIDERS: Visit Provider Counselor Mental Health ==

== ENCOUNTER → 2024-11-03 13:54 | Outpatient (AMB) | payer OTHER, SELFPAY ==
--- NOTE | 2024-11-03 14:00 | A.OFFWM_ITS ---
Intake Intake Visit Reasons: (OV) BH Intake Allergies Sulfa (Sulfonamide Antibiotics) Allergy (Mild, Verified 09/11/24 11:53) itchy PFSH Medical History (Updated 10/31/24 @ 14:25 by Kristi Richard CMA) GERD (gastroesophageal reflux disease) Non-insulin dependent type 2 diabetes mellitus DJD (degenerative joint disease) Hyperlipidemia Hypertension History of [place] (myocardial infarction) CAD (coronary artery disease) BMI 35.0-35.9,adult Obesity Surgical History (Updated 09/05/24 @ 15:51 by Kristi Richard CMA) Hx of heart artery stent Hx of carpal tunnel repair Family History (Updated 09/05/24 @ 15:52 by Kristi Richard CMA) Mother No problems noted. Father Renal cancer Diabetes Heart problem Social History (Updated 09/05/24 @ 15:56 by Kristi Richard CMA) Alcohol intake: never Patient Tobacco Use Status: Current everyday Tobacco user Tobacco use type: Cigarette Cigarettes Per Day: 15 Behavioral Health Assessment Weight Management Therapy Therapy Notes Details PT is a 59 years old female, who presents for initial visit to complete BH assessment as part of surgical weight loss program. Presenting Concerns Referral Source WMP-Provider Reason for referral Completion of behavioral health assessment as part of process for weight-loss surgery. Precipitating Event Obesity. Living Situation Current Living Situation Own At risk of losing current housing? No Satisfied with current living situation? No Comments PT lives with partner. Food/Weight/Diet Expectations of change PT started the program on 09/11/2024 at 185Lbs. Recent weight as of : 179Lbs Initial goal to lose 10% of her weight before surgery, which is about 18lbs. Ultimate weight goal: 167lbs before surgery Patient goals are better health and weight loss, get out of medication if possible. PT is implementing the following: Current meal plan: Using the right BMI mercedes, has a combination of shakes, bars and 1 meal. Exercise plan: outdoor walking. Planning for 5 days at week, 400 calories each day. Scale: Yes Communication w/ Provider: weekly text, Saturdays. History/Relationship with food PT reports she is an emotional eating, Example of meals before starting the program: Breakfast: @9am Lunch: Dinner: Snacks: Drinks/Liquids: History/Relationship with weight PT reports she was obese in childhood. When she was 13 y/o she was 183Lbs. In the last 10 years, the patient's Lowest weight was 140Lbs and highest 228Lbs PT would like to be at 130Lbs. Pt reports her father and 2 sisters are obese. History/Relationship with dieting Weight watchers, Atkins, periods of restrictions, self-diets, semaglutide, OTC pills, Social History Family history and relationship Never , she had no children. she has been in a relationship since 2014. His partner has 3 adult children, his oldest lives in their second floor. Mother is alive, father due to kidney cancer. Parents when she was 16. She has 2 sisters and 1 brother. PT reports good family relationships. Pt reports not feeling happy with current partner. Parental/Familial linux unix engineer obligations None yet, but close to start caring for her mother. Developmental history and status None. Social support Mother and sister. Community support None. Congregational/Spirituality Amish. Cultural/Ethnic information . Legal Involvement and History Current or historical involvement with the legal system? None. Education Highest grade completed Some college. Preferred learning style Learn by doing Currently enrolled in educational program? No Interested in further educational program? 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 ) Wants help to find employment? 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 Listen to podcast Financial Situation Describe current financial situation Occasional struggle Financial assistance? None Service Service? No Mental Health and Addiction Treatment Current/Past substance abuse? No Comments Alcohol: Socially. 1-2 times at year. Cigarettes/Tobacco: smoking, down to 12 at day. Cannabis/Edibles: None. Current/Past addictive behavior concerns? Yes (Currently does scratch tickets, at last $100 at week. ) Psychiatric history PT was in therapy many years ago due to depression and was taking Wellbutrin which made her more depressed. But she has not been in counseling or any tx at this time, also doesn't take any psych meds. Denies ever been inpatient or in crisis, denies every experience safety concerns around self/other harm, SI/SA. Questionnaires PHQ-9 Over the last 2 weeks, how often have you been bothered by any of the following problems? 1. Little interest or pleasure in doing things: not at all 2. Feeling down, depressed, or hopeless: not at all 3. Trouble falling or staying asleep, or sleeping too much: more than half the days 4. Feeling tired or having little energy: nearly every day 5. Poor appetite or overeating: more than half the days 6. Feeling bad about yourself - or that you are a failure or have let yourself or your family down: not at all 7. Trouble concentrating on things, such as reading the newspaper or watching television: not at all 8. Moving or speaking so slowly that other people could have noticed. Or the opposite - being so fidgety or restless that you have been moving around a lot more than usual: not at all 9. Thoughts that you would be better off or of hurting yourself in some way: not at all Total score: 7 Depression Screening Interpretation: Positive (From new PT pack. New one will be administered before finishing assessment.) Depression Screening Done: Yes Source: Developed by Drs. David Shoemaker, Amy Galvez, Carlton Dallas and colleagues, with an educational russel from [employer]. Binge Eating Scale Group 1 A. I don't feel self-conscious about my wt. or body size when I'm with others. B. I feel concerned about how I look to others, but it normally does not make me fell disappointed with myself C. I do get self-conscious about my appearance and wt. which makes me feel disappointed in myself. D. I feel very self-conscious about my wt. and frequently I feel intense shame and disgust for myself. I try to avoid social contacts because of my self- consciousness. Response Group 1: C Group 2 A. I don't have any difficulty eating slowly in the proper manner. B. Although I seem to gobble down foods, I don't end up feeling stuffed because of eating to much. C. At times, I tend to eat quickly and then, I feel uncomfortably full afterwards. D. I have the habit of bolting down my food, without really chewing it. When this happens I usually feel uncomfortably stuffed because I've eaten to much. Response Group 2: C Group 3 A. I feel capable to control my eating urges when I want to. B. I feel like I have failed to control my eating more than the average person. C. I feel utterly helpless when it comes to feeling in control of my eating urges. D. Because I feel so helpless about controlling my eating I have become very desperate about trying to get control. Response Group 3: B Group 4 A. I don't have the habit of eating when I'm bored. B. I sometimes eat when I'm bored, but often I'm able to get busy and get my mind off food. C. I have a regular habit of eating when I'm bored, but occasionally, I can use some other activity to get my mind off eating. D. I have a strong habit of eating when I'm bored. Nothing seems to help me breath the habit. Response Group 4: C Group 5 A. I'm usually physically hungry when I eat something. B. Occasionally, I eat something on impulse even though I really am not hungry. C. I have the regular habit of eating foods, that I might not really enjoy, to satisfy a hungry feeling even though physically, I don't need the food. D. Although I'm not physically hungry, I get a hungry feeling in my mouth that only seems to be satisfied when I eat a food, like sandwich, that fills my mouth. Sometimes, when I eat the food to satisfy my mouth hunger, I then spit the food out so I won't gain weight. Response Group 5: B Group 6 A. I don't feel any guilt or self-hate after I overeat. B. After I overeat, occasionally I feel guilt or self-hate. C. Almost all the time I experience strong guilt or self-hate after I overeat. Response Group 6: B Group 7 A. I don't lose total control of my eating when dieting even after periods when I overeat. B. Sometimes when I eat a forbidden food on a diet, I feel like I blew it and eat even more. C. Frequently, I have the habit of saying to myself, I've blown it now, why not go all the way, when I overeat on a diet. When that happens I eat more. D. I have a regular habit of starting a strict diets for myself but I break the diets by going on an eating binge. My life seems to be either a feast or famine. Response Group 7: B Group 8 A. I rarely eat so much food that I feel uncomfortably stuffed afterwards. B. Usually about once a month, I each such a quantity of food, I end up feeling very stuffed. C. I have regular periods during the month when I eat large amounts of food, either at mealtime or at snacks. D. I eat so much food that I regularly feel quite uncomfortable after eating and sometimes a bit nauseous. Response Group 8: C Group 9 A. My level of calorie intake does not go up very high or go down very low on a regular basis. B. Sometimes after I overeat, I will try to reduce my caloric intake to almost nothing to compensate for the excess calories I've eaten. C. I have a regular habit of overeating during the night. It seems that my routine is not to be hungry in the morning but overeat in the evening. D. In my adult years, I have had week-long periods where I practically starve myself. This follows periods when I overeat. It seems I live a life of either feast or famine. Response Group 9: A Group 10 A. I usually am able to stop eating when I want to. I know when enough is enough. B. Every so often, I experience a compulsion to eat which I can't seem to control. C. Frequently, I experience strong urges to eat which I seem unable to control, but at other times I can control my eating urges. D. I feel incapable of controlling urges to eat. I have a fear of not being able to stop eating voluntarily. Response Group 10: B Group 11 A. I don't have any problem stopping eating when I feel full. B. I usually can stop eating when I feel full but occasionally overeat leaving me feeling uncomfortably stuffed. C. I have a problem stopping eating once I start and usually I feel uncomfortably stuffed after I eat a meal. D. Because I have a problem not being able to stop eating when I want, I sometimes have to induce vomiting to relieve my stuffed feeling. Response Group 11: B Group 12 A. I seem to eat just as much when I'm with others, Family social gatherings as when I'm by myself. B. Sometimes, when I'm with other persons, I don't eat as much as I want to eat because I'm self-conscious about my eating. C. Frequently, I eat only a small amount of food when others are present, because I'm very embarrassed about my eating. D. I feel so ashamed about overeating that I pick times to overeat when I know no one will see me. I feel like a closet eater. Response Group 12: A Group 13 A. I eat three meals a day with only an occasional between meal snack. B. I eat 3 meals a day, but I also normally snack between meals. C. When I am snacking heavily, I get in the habit of skipping regular meals. D. There are regular periods when I seem to be continually eating, with no planned meals. Response Group 13: B Group 14 A. I don't think much about trying to control unwanted eating urges. B. At least some of the time, I feel my thoughts are pre-occupied with trying to control my eating urges. C. I feel that frequently I spend much time thinking about how much I ate or about trying not to eat anymore. D. It seems to me that most of my waking hours are pre-occupied by thoughts about eating or not eating. I feel like I'm constantly struggling not to eat. Response Group 14: C Group 15 A. I don't think about food a great deal. B. I have strong craving for food but they last only for brief periods of time. C. I have days when I can't seem to think about anything else but food. D. Most of my days seem to be pre-occupied with thoughts about food. I feel like I live to eat. Response Group 15: C Group 16 A. I usually know whether or not I'm physically hungry. I take the right portion of food to satisfy me. B. Occasionally, I feel uncertain about knowing whether or not I'm physically hungry. A these times it's hard to know how much food I should take to satisfy me. C. Even though I might know how many calories I should eat, I don't have any idea what is a normal amount of food for me. Response Group 16: B Binge Eating Score: 20 Score less than 17 Minimal Risk Score between 18-26 Moderate Risk Score between 27-46 High Risk Assessment & Plan Assessment & Plan (1) BMI 35.0-35.9,adult: Code(s): Z68.35 - Body mass index [BMI] 35.0-35.9, adult (2) Adjustment disorder, unspecified: Code(s): F43.20 - Adjustment disorder, unspecified (3) Inappropriate diet or eating habits: Code(s): Z72.4 - Inappropriate diet and eating habits Plan PT will return next week to continue assessment. NExt mercedes 11/08/24 at 12, Phone visit. Coding Level of Care Code New Pt Psy Diag Eval (38064) Patient Type New Diagnoses BMI 35.0-35.9,adult Z68.35 Adjustment disorder, unspecified F43.20 Inappropriate diet or eating habits Z72.4 Time Spent (min) 65
--- OUTSIDE RECORDS SUMMARY | 2024-11-03 15:38 | XMS_ITS | Continuity of Care Document ---
Author Organization [facility] Address [address] [place], [place] Phone [phone] Care Team Providers Care Dog Barber Name Role Phone Radha Randle MD Care [...] apply to area for bandage daily 50units E11.Willard Aguilar M.D. 02/05/2021 Hwuncnqlyen2sj Tablets Take 1/2 To 1 Tablet By Mouth Every Day as Needed 90tabs Mckenzie Aguilar M.D. 12/28/2018 Freestyle Lite Blood Glucose Monitoring SystemDevice uad 1units E11Veda Aguilar M.D. 12/23/2018 Freestyle Lite TestStrips 1 strip every day 100units E11.Willard Aguilar M.D. 12/23/2018 Metoprolol Zpfnzxnc75ft Tablets TK 1 T PO bid Unknown Aspirin Ec81mg Tablets DR 1 by mouth every day 30tabs Unknown 000 Multi Vitamin DailyTablets 1 by mouth every day Unknown 000 Metformin JMG232fy Tablets take 1 tablet by mouth 3 times a day 270tabs Mckenzie Aguilar M.D. Tumeric body aches Unknown 0 Losartan Fixnmxbpv233ip Tablets 1 by mouth every day Unknown 000 Vit D plans to stop since surgeon told her it was high(10/2024) Unknown History Medications Snkdsajjs3oh/0.5ML Solution Pen-Inject inject 3 mg subcutaneously once a week 2ml E11.8 Mckenzie Aguilar M.D. 12/16/2023 - 02/14/2024 Nczwnyzbr6up/0.5ML Solution Pen-Inject inject 3 mg subcutaneously once a week 6ml Mckenzie Aguilar M.D. 11/05/2023 - 02/14/2024 Trulicity4.5mg/0.5ML Solution Pen-Inject 4.5mg once a week 2ml E11.8 Mckenzie Aguilar M.D. 07/09/2023 - 12/16/2023 Mjsleui247aj/ml Soln Prefill Syringe inject subcutaneously 140mg every month 1ml E78.5 Mckenzie Aguilar M.D. 07/09/2023 - 10/04/2023 E11.8 I25.9 Xtogqewn450py/ml Solution Auto-Inject inject one pen (150mg) subcutaneously every 2 weeks 6ml E78.5 Mckenzie Aguilar M.D. 07/08/2023 - 07/09/2023 Amnqlrrjm5wg/0.5ML Solution Pen-Inject inject 3.0mg subcutaneously once a week 6ml E11.8 Mckenzie Aguilar M.D. 05/24/2023 - 07/09/2023 Ozrgvulc07bi/ml Solution Auto-Inject inject one pen (75mg) subcutaneously every 2 weeks 2ml E78.5 Mckenzie Aguilar M.D. 02/15/2023 - 07/08/2023 Ozempic (1 MG/Dose)2mg/1.5ML Solution Pen-Inject 1mg subcutaneously every week 9ml E11.8 Mckenzie Aguilar M.D. 10/11/2019 - 01/12/2020 Cynampgfi19om Tablets Take 1 Tablet By Mouth Once A Day 30tabs E78.Reinier Aguilar M.D. 04/12/2019 - 01/12/2020 Trulicity1.5mg/0.5ML Solution Pen-Inject Inject 1.5MG Subcutaneously Every Week 6ml E11.8 Mckenzie Aguilar M.D. 12/26/2018 - 05/24/2023 Piacmuv0tc/Dose Solution Pen-Inject inject 1mg once a week 9ml E11.8 Mckenzie Aguilar M.D. 12/23/2018 - 12/26/2018 Losartan Fnakghjrc94tv Tablets 1 by mouth every day Mckenzie Aguilar M.D. 12/23/2018 - 10/04/2023 Trulicity0.75mg/0.5ML Solution Pen-Inject 0.75 mg subcutaneous every week 6units E11Veda Aguilar M.D. 10/19/2016 - 12/23/2018 Rizmradjo37ki Tablets Take 1 Tablet By Mouth Once A Day 30tabs E78.Reinier Aguilar M.D. 09/25/2016 - 12/23/2018 Bghwq07gh Tablets take 1 tablet by mouth once a day 30tabs E78.5 Mckenzie Aguilar M.D. 06/18/2016 - 09/25/2016 Ymjlwyfpwkb2xc Tablets Take 1 Tablet By Mouth Daily 90tabs Mckenzie Aguilar M.D. 01/21/2016 - 06/18/2016 Mvit Umu Facundo in Am Aime Aguilar M.D. 12/18/2015 - 06/18/2016 Pdlemwn2uo Tablets 1 by mouth every day-no substitution. 90tabs E78.5 Mckenzie Aguilar M.D. 12/18/2015 - 10/19/2016 Krjfwid09qb Tablets take 1 tablet by mouth daily. E78.5 . 10/11/2014 - 12/18/2015 Rywfvbjgema3og Tablets Take 1 Tablet By Mouth Daily 90tabs Mckenzie Aguilar M.D. 02/16/2014 - 12/18/2015 Coq10 Gummies Atgah82fq Chewtabs ?amt Unknown 0 - 02/14/2024 Plexus diet med drink E11.8 Unknown - 11/10/2022 Krill Tkj026wp Capsules 1/d Unknown - 11/10/2022 Kclqaefo300fc Capsules 1/d Unknown - 12/23/[address] SEALS 1 C PO qd Unknown - 10/19/2016 Doxycycline Rrxuluqxxgr162me Capsules Unknown - 06/18/2016 Mvit/[place] Epa/Cell Healy/Provexcv/Recover AlMela Facundo packet of pills each night Unknown - 06/18/2016 Adcgctqasz595sj Capsules Annabel Randle - 10/10/2014 Qkvpnad27ax Tablets take 1 tablet by mouth daily. Annabel Randle - 10/11/2014 Doxycycline Zapdltj382kk Tablets Unknown - 10/10/2014 Losartan Vywdthhsg31rw Tablets 1 by mouth every day Unknown - 12/23/2018
--- OUTSIDE RECORDS SUMMARY | 2024-11-03 15:38 | XMS_ITS | Data Portability ---
Author Organization [facility] [address] Address [address] [place] [address] Assessment No assessment recorded. Plan of Treatment Reminders Order Date Submit Date Provider Last Modified By Organization Details Last Modified Time Details Appointments None recorded. Lab None recorded. Referral None recorded. Procedures None recorded. Surgeries None recorded. Imaging None recorded. Medication Orders clindamycin phosphate 1 % topical solution [address]/Pharmacy [id number], [address] [place] [address], [id number], 3 14:02:12 cephalexin 500 mg capsule 2022 023 [facility]/Pharmacy #[id number], [address] [place] [address], [id number], 3 08:49:08 mupirocin 2 % topical ointment 2022 023 [facility]/Pharmacy #[id number], [address] [place] [address], [id number], 3 08:49:09 Patient TargetsNo targets recorded. Patient Instructions Encounter Date Encounter Id Patient Instructions Last Modified By Organization Details Last Modified Time 02/09/2023 [id number] skin abscess: care instructions [email or web address] Not available 02/09/2023 08:49:14 cellulitis: care instructions [email or web address] Not available 02/09/2023 08:49:14 Reason for Referral None Reported. Problems Name Problem SNOMED Code Status Onset Date Resolution Date Notes Provider Name and Address Organization Details Recorded Time Diabetes mellitus 90822973 Active 2022 [facility] 3 08:19:53 Hypertensive disorder 37142234 Active 2022 Soraida Hahnlexie rae [place] - [facility] 3 08:19:59 Problem Notes None recorded. Medical Equipment None Reported. Allergies Allergen ID Allergen Name Allergen Category Reaction Reaction Severity Criticality Documentation Date Start Date Code Code System Note Provider Name and Address Organization Details Recorded Time 321424 Substance with sulfonami de structure and antibacte rial mechanism of action (substanc e) medicatio n hives Not available Not available 02/09/2023 04918 8003 SNOMED Soraida Degroot null, PA - [...] Updated DateTime 3 157.48 cm 35.1 kg/m2 12484.7 4 g 99 % 99 % 10 79 /min 20 /min 98.5 [degF] 141 mm[Hg] 85 mm[Hg] Soraida LINARES [facility] 08:21:42 Social History Question Answer Notes LastModified by Organizat ion Details LastModified Time Tobacco Smoking Status Current Every Day Smoker [facility] Mariano CLARED 02/09/2023 08:20:20 What Is Your Level Of [...] 30 mcg/0.3 mL dose 11/09/2020 completed Soraida Temple null, [place] - [facility] 02/09/2023 08:19:10 [...] SNOMED-CT Code Diagnosis ICD10 Code Diagnosis Note [id number] [address] [address] 06/07/2022 11:50:25 06/07/2022 12:43:05 [id number] Jak Mensah MD [address] [address] 02/09/2023 08:08:40 02/09/2023 08:46:53 Abscess [id number] L02.91 Use the topical mupirocin on the area of the right groin.Very important to use warm compressed 4 times per day Please follow up with PCP or Urgent Care in 3-5 days if no improvemen t or if any new symptoms occur that are concerning . 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 the [...] ID Guarantor Name 06/07/2022 1 [facility] [id number] Sera Valentine [id number] Sera Valentine 02/09/2023 1 [facility] [id number] Sera Valentine [id number] Sera Valentine Notes Date Note Type Note Provider Name and Address Organization Details Recorded Time 02/09/2023 text/html Skin Redness UCReported bypatient.Quality :painful;erythema tous;raised;warm Severity:worsenin g Onset:gradual onset Symptoms:no fever; no nausea; no vomiting;swelling Notes:6 days right groin. History of abscesses Jak Mensah MD [address] [place], [address], [place] - [facility] 02/10/2023 14:04:32 OBGyn Episode No OBEpisode recorded.
== END ==
LOC: HO.HBST 13:55
PROVIDERS: Visit Provider Counselor Mental Health
DX: Z68.35 Body mass index [BMI] 35.0-35.9, adult (principal); F43.20 Adjustment disorder, unspecified; Z72.4 Inappropriate diet and eating habits
CPT/HCPCS: 90791

== ENCOUNTER → 2024-11-08 12:17 | Outpatient (AMB) | payer OTHER, SELFPAY ==
--- NOTE | 2024-11-08 12:08 | MHC.WMTHER ---
Intake Intake Visit Reasons: TV F/U Allergies Sulfa (Sulfonamide Antibiotics) Allergy (Mild, Verified 09/11/24 11:53) itchy PFSH Medical History (Updated 10/31/24 @ 14:25 by Kristi Richard CMA) GERD (gastroesophageal reflux disease) Non-insulin dependent type 2 diabetes mellitus DJD (degenerative joint disease) Hyperlipidemia Hypertension History of CA (myocardial infarction) CAD (coronary artery disease) BMI 35.0-35.9,adult Obesity Surgical History (Updated 09/05/24 @ 15:51 by Kristi Richard CMA) Hx of heart artery stent Hx of carpal tunnel repair Family History (Updated 09/05/24 @ 15:52 by Kristi Richard CMA) Mother No problems noted. Father Renal cancer Diabetes Heart problem Social History (Updated 09/05/24 @ 15:56 by Kristi Richard CMA) Alcohol intake: never Patient Tobacco Use Status: Current everyday Tobacco user Tobacco use type: Cigarette Cigarettes Per Day: 15 Behavioral Health Assessment Weight Management Therapy Therapy Notes Details PT is a 59 years old female, [facility] loss [facility]. Presenting Concerns Referral Source WMP-Provider Reason for referral Completion of behavioral health assessment as part of process for weight-loss surgery. Precipitating Event Obesity. Living Situation Current Living Situation Own At risk of losing current housing? No Satisfied with current living situation? No Comments PT lives with partner. Food/Weight/Diet Expectations of change PT started the program on 09/11/2024 at 185 lbs. Recent weight as of 10/28/24: 179Lbs The initial goal is to lose 10% of her weight before surgery, which is about 18lbs. Ultimate weight goal: 167lbs before surgery Patient goals are better health and weight loss, get out of medication if possible. PT is implementing the following: Current meal plan: Using the right BMI mercedes, has a combination of shakes, bars and 1 meal. Exercise plan: outdoor walking. Planning for 5 days a week, 400 calories each day. Scale: Yes Communication w/ Provider: weekly text, Saturdays. History/Relationship with food The patient reports being an emotional eater, often using food to cope with both good and bad days. She learned this behavior from her father, who was overweight and would eat his feelings. She tends to eat more when alone but denies eating after dinner. In the past, she has eaten even when not physically hungry. Additionally, she gave up soda 20 years ago. Example of meals before starting the program: Breakfast: @7am when arrived to work like a muffin, Am snack: PB crackers. @9am yogurt. Lunch: @12pm sandwich and a bag of chips. PM snack: cookies a co-worker would bring. Dinner: homemade. a lot of grilled chicken or fried things. PM snacks: none. Drinks/Liquids: ice tea, coffee (sips throughout the day) History/Relationship with weight The patient reports being obese during childhood, weighing 183 lbs at age 13. Over the past 10 years, her weight has ranged from a low of 140 lbs to a high of 228 lbs. She would like to reach 130 lbs, but recalls that when she was around 140 lbs about 30 years ago, she received unwanted attention from males, which made her uncomfortable. She struggled to cope with this and reverted to old habits. The patient also reports that her father and two sisters are obese. History/Relationship with dieting She has attempted various diets, including Weight Watchers, Atkins, periods of restriction, self-guided diets, semaglutide, and jzdt-lsq-qpxbybc pills, but consistently ends up gaining back more weight than she lost. Binge Eating Do you frequently eat large amounts of food in short periods of time, not feeling physically hungry? No Do you feel out of control when you eat a large amount of food in a short period of time? No Do you eat large amounts of food rapidly and typically alone? Yes Night Eating Do you wake up at least once during the night to eat? No If you wake up in the night, do you find that it is necessary to eat something in order to fall back asleep? No Do you have little or no appetite in the morning and feel very hungry in the evening, often overeating between dinner and when you go to bed? No Social History Family history and relationship Never , she had no children. she has been in a relationship since 2015. His partner has 3 adult children, his oldest lives in their second floor. Mother is alive, father due to kidney cancer. Parents when she was 16. She has 2 sisters and 1 brother. PT reports good family relationships. Pt reports not feeling happy with current partner. 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 Developmental history and status None. Social support Mother and sister. Community support None. Sabianist/Spirituality Restorationism. Cultural/Ethnic information . Legal Involvement and History Current or historical involvement with the legal system? None. Education Highest grade completed Some college. Preferred learning style Learn by doing Currently enrolled in educational program? No Interested in further educational program? 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 ) Wants help to find employment? 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 Listen to podcast Financial Situation Describe current financial situation Occasional struggle Financial assistance? None Service Service? No Mental Health and Addiction Treatment Current/Past substance abuse? No Comments Alcohol: Socially. 1-2 times at year. Cigarettes/Tobacco: smoking, down to 12 at day. Cannabis/Edibles: None. Current/Past addictive behavior concerns? Yes (Currently does scratch tickets, at last $100 at week. ) Psychiatric history The patient attended therapy many years ago for depression and was prescribed Wellbutrin, which worsened her symptoms. She is not currently in counseling or receiving any mental health treatment and does not take psychiatric medications. She denies any history of inpatient care, crises, or safety concerns related to self-harm, suicidal ideation (SI), or suicidal attempts (SA). Medical and Physical Health Summary Additional Medical History not covered in history None aditional Sexual History concerns None reported Physical exam in the last year? Yes Pain Screening Current pain? No Pain in the last few months? No Medications Is the patient compliant with medications? Yes Does the patient have Perez Guardian in place? Not applicable Does the patient use complimentary health approaches? No Trauma/Abuse History History of trauma? Yes Questionnaires Binge Eating Scale Group 1 A. I don't feel self-conscious about my wt. or body size when I'm with others. B. I feel concerned about how I look to others, but it normally does not make me fell disappointed with myself C. I do get self-conscious about my appearance and wt. which makes me feel disappointed in myself. D. I feel very self-conscious about my wt. and frequently I feel intense shame and disgust for myself. I try to avoid social contacts because of my self-consciousness. Response Group 1: C Group 2 A. I don't have any difficulty eating slowly in the proper manner. B. Although I seem to gobble down foods, I don't end up feeling stuffed because of eating to much. C. At times, I tend to eat quickly and then, I feel uncomfortably full afterwards. D. I have the habit of bolting down my food, without really chewing it. When this happens I usually feel uncomfortably stuffed because I've eaten to much. Response Group 2: C Group 3 A. I feel capable to control my eating urges when I want to. B. I feel like I have failed to control my eating more than the average person. C. I feel utterly helpless when it comes to feeling in control of my eating urges. D. Because I feel so helpless about controlling my eating I have become very desperate about trying to get control. Response Group 3: B Group 4 A. I don't have the habit of eating when I'm bored. B. I sometimes eat when I'm bored, but often I'm able to get busy and get my mind off food. C. I have a regular habit of eating when I'm bored, but occasionally, I can use some other activity to get my mind off eating. D. I have a strong habit of eating when I'm bored. Nothing seems to help me breath the habit. Response Group 4: C Group 5 A. I'm usually physically hungry when I eat something. B. Occasionally, I eat something on impulse even though I really am not hungry. C. I have the regular habit of eating foods, that I might not really enjoy, to satisfy a hungry feeling even though physically, I don't need the food. D. Although I'm not physically hungry, I get a hungry feeling in my mouth that only seems to be satisfied when I eat a food, like sandwich, that fills my mouth. Sometimes, when I eat the food to satisfy my mouth hunger, I then spit the food out so I won't gain weight. Response Group 5: B Group 6 A. I don't feel any guilt or self-hate after I overeat. B. After I overeat, occasionally I feel guilt or self-hate. C. Almost all the time I experience strong guilt or self-hate after I overeat. Response Group 6: B Group 7 A. I don't lose total control of my eating when dieting even after periods when I overeat. B. Sometimes when I eat a forbidden food on a diet, I feel like I blew it and eat even more. C. Frequently, I have the habit of saying to myself, I've blown it now, why not go all the way, when I overeat on a diet. When that happens I eat more. D. I have a regular habit of starting a strict diets for myself but I break the diets by going on an eating binge. My life seems to be either a feast or famine. Response Group 7: B Group 8 A. I rarely eat so much food that I feel uncomfortably stuffed afterwards. B. Usually about once a month, I each such a quantity of food, I end up feeling very stuffed. C. I have regular periods during the month when I eat large amounts of food, either at mealtime or at snacks. D. I eat so much food that I regularly feel quite uncomfortable after eating and sometimes a bit nauseous. Response Group 8: C Group 9 A. My level of calorie intake does not go up very high or go down very low on a regular basis. B. Sometimes after I overeat, I will try to reduce my caloric intake to almost nothing to compensate for the excess calories I've eaten. C. I have a regular habit of overeating during the night. It seems that my routine is not to be hungry in the morning but overeat in the evening. D. In my adult years, I have had week-long periods where I practically starve myself. This follows periods when I overeat. It seems I live a life of either feast or famine. Response Group 9: A Group 10 A. I usually am able to stop eating when I want to. I know when enough is enough. B. Every so often, I experience a compulsion to eat which I can't seem to control. C. Frequently, I experience strong urges to eat which I seem unable to control, but at other times I can control my eating urges. D. I feel incapable of controlling urges to eat. I have a fear of not being able to stop eating voluntarily. Response Group 10: B Group 11 A. I don't have any problem stopping eating when I feel full. B. I usually can stop eating when I feel full but occasionally overeat leaving me feeling uncomfortably stuffed. C. I have a problem stopping eating once I start and usually I feel uncomfortably stuffed after I eat a meal. D. Because I have a problem not being able to stop eating when I want, I sometimes have to induce vomiting to relieve my stuffed feeling. Response Group 11: B Group 12 A. I seem to eat just as much when I'm with others, Family social gatherings as when I'm by myself. B. Sometimes, when I'm with other persons, I don't eat as much as I want to eat because I'm self-conscious about my eating. C. Frequently, I eat only a small amount of food when others are present, because I'm very embarrassed about my eating. D. I feel so ashamed about overeating that I pick times to overeat when I know no one will see me. I feel like a closet eater. Response Group 12: A Group 13 A. I eat three meals a day with only an occasional between meal snack. B. I eat 3 meals a day, but I also normally snack between meals. C. When I am snacking heavily, I get in the habit of skipping regular meals. D. There are regular periods when I seem to be continually eating, with no planned meals. Response Group 13: B Group 14 A. I don't think much about trying to control unwanted eating urges. B. At least some of the time, I feel my thoughts are pre-occupied with trying to control my eating urges. C. I feel that frequently I spend much time thinking about how much I ate or about trying not to eat anymore. D. It seems to me that most of my waking hours are pre-occupied by thoughts about eating or not eating. I feel like I'm constantly struggling not to eat. Response Group 14: C Group 15 A. I don't think about food a great deal. B. I have strong craving for food but they last only for brief periods of time. C. I have days when I can't seem to think about anything else but food. D. Most of my days seem to be pre-occupied with thoughts about food. I feel like I live to eat. Response Group 15: C Group 16 A. I usually know whether or not I'm physically hungry. I take the right portion of food to satisfy me. B. Occasionally, I feel uncertain about knowing whether or not I'm physically hungry. A these times it's hard to know how much food I should take to satisfy me. C. Even though I might know how many calories I should eat, I don't have any idea what is a normal amount of food for me. Response Group 16: B Binge Eating Score: 20 Score less than 17 Minimal Risk Score between 18-26 Moderate Risk Score between 27-46 High Risk Assessment & Plan Assessment & Plan (1) BMI 35.0-35.9,adult: Code(s): Z68.35 - Body mass index [BMI] 35.0-35.9, adult (2) Adjustment disorder, unspecified: Code(s): F43.20 - Adjustment disorder, unspecified (3) Inappropriate diet or eating habits: Code(s): Z72.4 - Inappropriate diet and eating habits Plan The patient is only available during her lunch break, so We will meet again in two weeks to finalize the assessment and administer a new PHQ-9. Afterward, the patient will continue meeting for support with habit-building, emotional eating, and readiness for surgery, both pre- and post-op. Next appointment: 11/23/2024 at 12:00 PM, phone call - 30 minutes. Telehealth Telehealth [facility] Location of provider rendering services: other Location of patient: other (Work.) Patient Identification confirmed using: Name, : Yes Telehealth method: voice only Patient verbally consented to treatment: Yes Patient verbally consented to billing insurance company: Yes Patient informed of any privacy concerns related to visit: Yes Minutes spent on Phone/Video with Pt.: 30 Coding Level of Care Code Established Pt Tele Psytx 30 mins (86889) Patient Type Established Diagnoses BMI 35.0-35.9,adult Z68.35 Adjustment disorder, unspecified F43.20 Inappropriate diet or eating habits Z72.4 Time Spent (min) 30
--- OUTSIDE RECORDS SUMMARY | 2024-11-08 14:46 | XMS_ITS | Data Portability ---
Author Organization [facility] [address] Address [address] [place] [address] Assessment No assessment recorded. Plan of Treatment Reminders Order Date Submit Date Provider Last Modified By Organization Details Last Modified Time Details Appointments None recorded. Lab None recorded. Referral None recorded. Procedures None recorded. Surgeries None recorded. Imaging None recorded. Medication Orders clindamycin phosphate 1 % topical solution [address]/Pharmacy #[id number], [address] [place] [address], [address], 3 14:02:12 cephalexin 500 mg capsule 2022 023 [facility]/Pharmacy #[id number], [address] [place] [address], [address], 3 08:49:08 mupirocin 2 % topical ointment 2022 023 [facility]/Pharmacy #[id number], [address] [place] [address], [address], 3 08:49:09 Patient TargetsNo targets recorded. Patient Instructions Encounter Date Encounter Id Patient Instructions Last Modified By Organization Details Last Modified Time 02/09/2023 [id number] skin abscess: care instructions eal Not available 02/09/2023 08:49:14 cellulitis: care instructions [email or web address] Not available 02/09/2023 08:49:14 Reason for Referral None Reported. Problems Name Problem SNOMED Code Status Onset Date Resolution Date Notes Provider Name and Address Organization Details Recorded Time Diabetes mellitus 10161094 Active 2022 [facility] 3 08:19:53 Hypertensive disorder 54049388 Active 2022 Soraida Hahnlexie rae [place] - [facility] 3 08:19:59 Problem Notes None recorded. Medical Equipment None Reported. Allergies Allergen ID Allergen Name Allergen Category Reaction Reaction Severity Criticality Documentation Date Start Date Code Code System Note Provider Name and Address Organization Details Recorded Time 503787 Substance with sulfonami de structure and antibacte rial mechanism of action (substanc e) medicatio n hives Not available Not available 02/09/2023 [id number] SNOMED Soraida Degroot null, PA - [...] Updated DateTime 3 157.48 cm 35.1 kg/m2 22353.7 4 g 99 % 99 % 10 79 /min 20 /min 98.5 [degF] 141 mm[Hg] 85 mm[Hg] Soraida [facility] [employer] 08:21:42 Social History Question Answer Notes LastModified by Organizat ion Details LastModified Time Tobacco Smoking Status Current Every Day Smoker [facility] [email or web address] 02/09/2023 08:20:20 What Is Your Level Of [...] 30 mcg/0.3 mL dose 11/09/2020 completed Soraida [place] null, PA - [facility] 02/09/2023 08:19:10 COVID-19, mRNA, LNP-S, PF, 30 mcg/0.3 mL dose 11/30/2020 completed Soraida Zane null, PA - [facility] 02/09/2023 08:19:10 COVID-19, mRNA, LNP-S, PF, 30 mcg/0.3 mL dose 06/03/2021 completed Soraida Zane null, PA - [facility] 02/09/2023 08:19:10 Influenza, split virus, quadrivalent, PF 05/15/2021 completed Osraida Znae null, PA - [facility] 02/09/2023 08:19:10 Past Encounters Encounter ID Performer Location Encounter Start Date Encounter Closed Date Diagnosis/Indication Diagnosis SNOMED-CT Code Diagnosis ICD10 Code Diagnosis Note [id number] [address] [address] 06/07/2022 11:50:25 06/07/2022 12:43:05 [id number] Jak Mensah MD [address] [address] 02/09/2023 08:08:40 02/09/2023 08:46:53 Abscess 151826429 L02.91 Use the topical mupirocin on the area of the right groin.Very important to use warm compressed 4 times per day Please follow up with PCP or Urgent Care in 3-5 days if no improvemen t or if any new symptoms occur that are concerning . 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 the [...] Kinsey Member ID Guarantor Name 06/07/2022 1 [facility] [id number] Sera Valentine [id number] Sera Valentine 02/09/2023 1 [facility] [id number] Sera Valentine [id number] Sera Valentine Notes Date Note Type Note Provider Name and Address Organization Details Recorded Time 02/09/2023 text/html Skin Redness UCReported bypatient.Quality :painful;erythema tous;raised;warm Severity:worsenin g Onset:gradual onset Symptoms:no fever; no nausea; no vomiting;swelling Notes:6 days right groin. History of abscesses Jak Mensah MD [address] [place], [address], [place] - [facility] 02/10/2023 14:04:32 OBGyn Episode No OBEpisode recorded.
--- OUTSIDE RECORDS SUMMARY | 2024-11-08 14:46 | XMS_ITS | Continuity of Care Document ---
Author Organization [facility] Address [address] [facility] [facility] [address] [place], [place] Phone [phone] Care Team Providers Care Quality Assurance Lead Name Role Phone Radha Randle MD Care [...] bandage daily 50units E11.Willard Aguilar M.D. 02/05/2021 Waluumfoplz4ya Tablets Take 1/2 To 1 Tablet By Mouth Every Day as Needed 90tabs Mckenzie Aguilar M.D. 12/28/2018 Freestyle Lite Blood Glucose Monitoring SystemDevice uad 1units E11Veda Aguilar M.D. 12/23/2018 Freestyle Lite TestStrips 1 strip every day 100units E11.Willard Aguilar M.D. 12/23/2018 Metoprolol Fdrbhpqx34ts Tablets TK 1 T PO bid Unknown Aspirin Ec81mg Tablets DR 1 by mouth every day 30tabs Unknown 000 Multi Vitamin DailyTablets 1 by mouth every day Unknown 000 Metformin JWZ459me Tablets take 1 tablet by mouth 3 times a day 270tabs Mckenzie Aguilar M.D. Tumeric body aches Unknown 0 Losartan Euqezxkmg860hf Tablets 1 by mouth every day Unknown 000 Vit D plans to stop since surgeon told her it was high(10/2024) Unknown History Medications Mpwdnolkl7zw/0.5ML Solution Pen-Inject inject 3 mg subcutaneously once a week 2ml E11.8 Mckenzie Aguilar M.D. 12/16/2023 - 02/14/2024 Avbdlfwso1hl/0.5ML Solution Pen-Inject inject 3 mg subcutaneously once a week 6ml Mckenzie Aguilar M.D. 11/05/2023 - 02/14/2024 Trulicity4.5mg/0.5ML Solution Pen-Inject 4.5mg once a week 2ml E11.8 Mckenzie Aguilar M.D. 07/09/2023 - 12/16/2023 Edwcvrs560qo/ml Soln Prefill Syringe inject subcutaneously 140mg every month 1ml E78.5 Mckenzie Aguilar M.D. 07/09/2023 - 10/04/2023 E11.8 I25.9 Snpqshtk923yi/ml Solution Auto-Inject inject one pen (150mg) subcutaneously every 2 weeks 6ml E78.5 Mckenzie Aguilar M.D. 07/08/2023 - 07/09/2023 Hsspgoqul7hf/0.5ML Solution Pen-Inject inject 3.0mg subcutaneously once a week 6ml E11.8 Mckenzie Aguilar M.D. 05/24/2023 - 07/09/2023 Okeaymni54yx/ml Solution Auto-Inject inject one pen (75mg) subcutaneously every 2 weeks 2ml E78.5 Mckenzie Aguilar M.D. 02/15/2023 - 07/08/2023 Ozempic (1 MG/Dose)2mg/1.5ML Solution Pen-Inject 1mg subcutaneously every week 9ml E11.8 Mckenzie Aguilar M.D. 10/11/2019 - 01/12/2020 Txzrkpldb95ra Tablets Take 1 Tablet By Mouth Once A Day 30tabs E78.Reinier Aguilar M.D. 04/12/2019 - 01/12/2020 Trulicity1.5mg/0.5ML Solution Pen-Inject Inject 1.5MG Subcutaneously Every Week 6ml E11.8 Mckenzie Aguilar M.D. 12/26/2018 - 05/24/2023 Tmhezac2sy/Dose Solution Pen-Inject inject 1mg once a week 9ml E11.8 Mckenzie Aguilar M.D. 12/23/2018 - 12/26/2018 Losartan Vpmyjqdoo60wn Tablets 1 by mouth every day Mckenzie Aguilar M.D. 12/23/2018 - 10/04/2023 Trulicity0.75mg/0.5ML Solution Pen-Inject 0.75 mg subcutaneous every week 6units E11Veda Aguilar M.D. 10/19/2016 - 12/23/2018 Kbigzzbqz01ny Tablets Take 1 Tablet By Mouth Once A Day 30tabs E78.Reinier Aguilar M.D. 09/25/2016 - 12/23/2018 Hckau55sk Tablets take 1 tablet by mouth once a day 30tabs E78.5 Mckenzie Aguilar M.D. 06/18/2016 - 09/25/2016 Tcllitwrpih2xi Tablets Take 1 Tablet By Mouth Daily 90tabs Mckenzie Aguilar M.D. 01/21/2016 - 06/18/2016 Mvit Umu Facundo in Am Aime Aguilar M.D. 12/18/2015 - 06/18/2016 Kflsfsg8io Tablets 1 by mouth every day-no substitution. 90tabs E78.5 Mckenzie Aguilar M.D. 12/18/2015 - 10/19/2016 Idlszdm02ml Tablets take 1 tablet by mouth daily. E78.5 . 10/11/2014 - 12/18/2015 Esfhopxmkkt9xs Tablets Take 1 Tablet By Mouth Daily 90tabs Mckenzie Aguilar M.D. 02/16/2014 - 12/18/2015 Coq10 Gummies Zpnit09ee Chewtabs ?amt Unknown 0 - 02/14/2024 Plexus diet med drink E11.8 Unknown - 11/10/2022 Krill Btz148us Capsules 1/d Unknown - 11/10/2022 Xbvstber867dx Capsules 1/d Unknown - 12/23/[address] SEALS 1 C PO qd Unknown - 10/19/2016 Doxycycline Qrsmwvquhgw931iv Capsules Unknown - 06/18/2016 Mvit/[place] Epa/Cell Healy/Provexcv/Recover AlMela Facundo packet of pills each night Unknown - 06/18/2016 Zfjweghdwy251as Capsules Annabel Randle - 10/10/2014 Zlfcfzn54cm Tablets take 1 tablet by mouth daily. Annabel Randle - 10/11/2014 Doxycycline Qkxvqfz376ye Tablets Unknown - 10/10/2014 Losartan Xckbwdwvj07ra Tablets 1 by mouth every day Unknown - 12/23/2018
== END ==
LOC: HO.HBST 12:17
PROVIDERS: Visit Provider Counselor Mental Health
DX: Z68.35 Body mass index [BMI] 35.0-35.9, adult (principal); F43.20 Adjustment disorder, unspecified; Z72.4 Inappropriate diet and eating habits
CPT/HCPCS: 90832

== ENCOUNTER → 2024-11-08 12:17 | Outpatient (BNVA) | payer OTHER, SELFPAY | PROVIDERS: Visit Provider Counselor Mental Health ==

== ENCOUNTER 2024-11-10 11:00 | Day surgery (SDC) | payer OTHER, SELFPAY ==
--- NOTE | 2024-10-18 08:24 | HO.ANESPROP2 ---
Documented by User: Nevaeh Myrick NP 11/07/24 14:27 HPI - Anesthesia Eval Consult details Narrative: 59yo F for Upper Endoscopy, 11/10/24 CAD with AL and stent 2011. 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 No CP/SOB with minimal activity. Pt plans to have EKG and CXR done prior to SSS. Anesthesia Pre-Procedure Meds Is the patient on any of the following meds?: GLP1/DPP4 PMFSH Active Problems Active Problems: All Active Problems GERD (gastroesophageal reflux disease) (Acute) Non-insulin dependent type 2 diabetes mellitus (Acute) DJD (degenerative joint disease) (Acute) Hyperlipidemia (Acute) Hypertension (Acute) CAD (coronary artery disease) (Acute) BMI 35.0-35.9,adult (Acute) Obesity (Acute) Past Medical History Medical History (Updated 11/09/24 @ 07:47 by Caroline Aggarwal RN) Anemia GERD (gastroesophageal reflux disease) Non-insulin dependent type 2 diabetes mellitus DJD (degenerative joint disease) Hyperlipidemia Hypertension History of [place] (myocardial infarction) CAD (coronary artery disease) BMI 35.0-35.9,adult Obesity Family History Family History (Updated 09/05/24 @ 15:52 by Kristi Richard CMA) Mother No problems noted. Father Renal cancer Diabetes Heart problem Surgical History Surgical History (Updated 11/10/24 @ 11:10 by Caroline Aggarwal RN) H/O colonoscopy Hx of heart artery stent Hx of carpal tunnel repair Social History Social History (Updated 09/05/24 @ 15:56 by Kristi Richard CMA) Alcohol intake: never Patient Tobacco Use Status: Current everyday Tobacco user Tobacco use type: Cigarette Cigarettes Per Day: 12 Meds Allergies Allergy/AdvReac Type Severity Reaction Status Date / Time Sulfa (Sulfonamide Allergy Mild itchy Verified 09/11/24 11:53 Antibiotics) Home Medications ?Medication ?Instructions ?Recorded ?Confirmed ?Last Taken ?Type acetaminophen 80 mg chewable tablet PO 09/05/24 09/11/24 Unknown History coenzyme Q10 100 mg chewable tablet 200 mg PO DAILY 09/05/24 09/11/24 Unknown History losartan 50 mg tablet 50 mg PO DAILY 09/05/24 09/11/24 Unknown History magnesium PO 09/05/24 09/11/24 Unknown History metformin 500 mg tablet 500 mg PO BID 09/05/24 09/11/24 Unknown History metoprolol tartrate 25 mg tablet 25 mg PO BID 09/05/24 09/11/24 Unknown History semaglutide 1 mg/dose (4 mg/3 mL) 1 mg subcut QWEEK 09/05/24 09/11/24 10/13/24 History subcutaneous pen injector (Ozempic) aspirin 81 mg tablet,delayed 81 mg PO DAILY 09/11/24 09/11/24 10/13/24 History release (Adult Aspirin Regimen) glimepiride 1 mg tablet 1 mg PO DAILY 11/10/24 11/10/24 Unknown History Exam Pertinent Lab Results Pertinent Lab Results: Laboratory Tests 10/23/24 11:03 WBC 8.0 Hgb 16.0 Hct 45.0 Plt Count 329 Sodium 137 Potassium 4.7 Chloride 104 Carbon Dioxide 23 BUN 21 H Creatinine 0.93 Narrative Narrative: EKG 10/2024 Vent. Rate : 72 BPM Atrial Rate : 72 BPM P-R Int : 158 ms QRS Dur : 66 ms QT Int : 388 ms P-R-T Axes : 46 19 44 degrees QTcB Int : 424 ms Normal sinus rhythm Normal ECG No previous ECGs available XR chest 2V 10/2024 IMPRESSION: Clear lungs. Assessment and Plan Assessment Anesthesia Assessment: Chart Reviewed Documented by User: Terry Freitas MD 11/10/24 11:42 [facility] Past Medical History Medical History (Updated 11/09/24 @ 07:47 by Caroline Aggarwal, ARIANA) Anemia GERD (gastroesophageal reflux disease) Non-insulin dependent type 2 diabetes mellitus DJD (degenerative joint disease) Hyperlipidemia Hypertension History of [place] (myocardial infarction) CAD (coronary artery disease) BMI 35.0-35.9,adult Obesity Family History Family History (Updated 09/05/24 @ 15:52 by Kristi Richard CMA) Mother No problems noted. Father Renal cancer Diabetes Heart problem Family history of problems with anesthesia: No Surgical History Surgical History (Updated 11/10/24 @ 11:10 by Caroline gAgarwal RN) H/O colonoscopy Hx of heart artery stent Hx of carpal tunnel repair History of Problems with Anesthesia: No Social History Social History (Updated 09/05/24 @ 15:56 by Kristi Richard CMA) Alcohol intake: never Patient Tobacco Use Status: Current everyday Tobacco user Tobacco use type: Cigarette Cigarettes Per Day: 12 Meds Allergies Allergy/AdvReac Type Severity Reaction Status Date / Time Sulfa (Sulfonamide Allergy Mild itchy Verified 09/11/24 11:53 Antibiotics) Home Medications ?Medication ?Instructions ?Recorded ?Confirmed ?Last Taken ?Type acetaminophen 80 mg chewable tablet PO 09/05/24 09/11/24 Unknown History coenzyme Q10 100 mg chewable tablet 200 mg PO DAILY 09/05/24 09/11/24 Unknown History losartan 50 mg tablet 50 mg PO DAILY 09/05/24 09/11/24 Unknown History magnesium PO 09/05/24 09/11/24 Unknown History metformin 500 mg tablet 500 mg PO BID 09/05/24 09/11/24 Unknown History metoprolol tartrate 25 mg tablet 25 mg PO BID 09/05/24 09/11/24 Unknown History semaglutide 1 mg/dose (4 mg/3 mL) 1 mg subcut QWEEK 09/05/24 09/11/24 10/13/24 History subcutaneous pen injector (Ozempic) aspirin 81 mg tablet,delayed 81 mg PO DAILY 09/11/24 09/11/24 10/13/24 History release (Adult Aspirin Regimen) glimepiride 1 mg tablet 1 mg PO DAILY 11/10/24 11/10/24 Unknown History Exam Airway Mallampati Class: I TM Dist: <=3cm Neck ROM: Full Loose/Missing/Broken Teeth: No Heart: ok Lungs: ok Assessment and Plan Assessment Anesthesia Assessment: Anesthesia Plan Discussed Final Anesthetic Review Family History of Problems with Anesthesia: No History of Problems with Anesthesia: No NPO: Yes ASA Class: III Final Preanesthetic Review: No Changes in Pt Med Stat, Meds/Allgs Chart Reviewed, Consent Obtained/Reviewed and Anes Risks/Benef Reviewed Patient Risk: Intermediate Procedure Risk: Intermediate Anesthetic Plan Anesthetic Plan: Agree w/ Assess. and Plan Disposition: Standard PACU
[2024-10-30 10:56] VITALS: BMI 35.0
[2024-11-10 11:12] VITALS: BMI 32.9
[2024-11-10 11:19] VITALS: BP 156/79; PULSE 113; RESP 15; TEMP 36.6; O2SAT 95
[2024-11-10] MEDS: Lactated Ringers 1,000 ML 80 ML IVCONT (11:39)
[2024-11-10 11:40] LABS: Glucose, Whole Blood 136 mg/dL (60-115)
--- NOTE | 2024-11-10 12:06 | MHC.SHP ---
Pre-Procedural Eval Section A - 24 Hr Update-Section A only Date of Service: 11/10/24 The patient is an INPATIENT: No The patient has been examined within 24 hours of the surgical procedure. The History & Physical has been completed within 30 days and I have reviewed it.: Yes Section B - Complete if H&P > 30 days Chief Complaint: Morbid (severe) obesity due to excess calories Details of Present Illness: GERD Relevant Family History (Specify if Yes): No Relevant Social History: None Present Medications: None Medical History: No relevant PMH History of Previous Operations: No relevant previous surgery Allergies: Allergies Allergy/AdvReac Type Severity Reaction Status Date / Time Sulfa (Sulfonamide Allergy Mild itchy Verified 09/11/24 11:53 Antibiotics) Review of Systems Sugical H&P ROS: Negative: Constitution, Cardiovascular, Respiratory, Neurological, Psychiatric, Hem-Onc, Allergic/Immunologic, Gastrointestinal, Genitourinary, Musculoskeletal, Integumentary, Endocrine and Eyes/Ears/Nose/Throat Exam Surgical H&P Exam: Normal: HEENT, Normal: Heart, Normal: Lungs, Normal: Extremities, Normal: Abdomen, Normal: Skin and Normal: Neurological Plan Diagnosis/Plan: Unchanged (EGD to assess etiology of GERD. Risks of bleeding and perforation were discussed with the patient and she is in agreement with the plan.) I have reviewed the history and physical and performed a pertinent physical examination on my patient. No changes have occurred unless specified. Time Spent With Patient Time: Total time managing care of this patient today ____ minutes.
--- NOTE | 2024-11-10 12:09 | P.BOP_ITS ---
Brief Operative Note Date of Service: 11/10/24 Pre-op diagnosis: GERD Post-op diagnosis: same Procedure: PROCEDURE DATE: 11/10/2024 PREOPERATIVE DIAGNOSIS: GERD POSTOPERATIVE DIAGNOSIS: ?Same as above. 1) bile reflux, 2) gastritis, 3) duodenitis PROCEDURE: [id number]-[id number] with biopsies Surgeon: ?Micah Sloan M.D.. Ph.D. Regional Coordinator: None ? Anesthesia: IV sedation Estimated blood loss: ?Minimal FINDINGS AND PROCEDURE: ? OPERATIVE INDICATIONS: ?The patient is a 59 year old female known to me who is interested in bariatric surgery. The patient has GERD. Based on this information I recommended an upper endoscopy to evaluate the patient's symptoms. Risks and complications of the surgery were discussed with the patient in advance particularly the possibility of perforation or bleeding that may require surgical intervention. The patient understood the risks and was in agreement with the plan. ? PROCEDURE: After informed consent was obtained by the patient, the patient was ?transferred to the Operating Room and was placed in the supine position.? After successful induction of IV sedation, a mouth block was inserted and the patient was placed in the left lateral decubitus position. An upper endoscopy was performed next, the oropharynx and esophagus appeared within the normal limits. There was no hiatal hernia. The z-line was smooth. Two biopsies were obtained from the distal esophagus 2-3 cm proximal to the GE junction and two additional biopsies from the GE junction. The stomach was entered and it appeared to be of normal size. There was gastritis throughout the stomach and a fair amount of bile. There was no stricture or ulcer. A biopsy was obtained from the gastric fundus and the antrum. No significant bleeding was noted from any of the biopsy sites. Retroflexion of the scope confirmed a normal GE junction. The scope was then advanced into the duodenum which appeared to be erythematous as well. Abiopsy was obtained from the duodenum as well. At that point the duodenum ?and the stomach were decompressed and the scope was withdrawn from the patient's mouth. The patient extubated and was transferred in stable condition to the Recovery Room for further care. I was present and performed all steps of the procedure. There were no residents to assist with this case. Micah Sloan M.D., Ph.D. Surgeon: Sarbjit Sloan MD Anesthesia: MAC Was an Regional Coordinator used for this Procedure?: No Estimated blood loss (mL): 0 IV fluids (mL): 400 Urine output (mL): 0 (No Chun to record output) Pathology: other (1) antrum x1, 2) fundus x1, 3) GE junction x2, 4) distal esophagus x2, 5) duodenum x1) Condition: stable Disposition: PACU
[2024-11-10 12:30] VITALS: BP 134/67; PULSE 85; RESP 16; TEMP 36.3; O2SAT 88
[2024-11-10 12:31] VITALS: RESP 16; O2SAT 93
[2024-11-10 12:45] VITALS: BP 135/73; PULSE 99; RESP 16; O2SAT 99
[2024-11-10 12:59] VITALS: BP 144/74; PULSE 81; RESP 16; TEMP 36.3; O2SAT 100
== END 2024-11-10 13:21 | disposition home or self-care (01) ==
PROVIDERS: PCP Nurse Practitioner Family; Visit Provider Surgery
PROC: 0DJ08ZZ Inspection of Upper Intestinal Tract, Via Natural or Artificial Opening Endoscopic (ICD-10-PCS; CPT 43235; principal; 2024-11-10 12:00)
DX: K21.9 Gastro-esophageal reflux disease without esophagitis (principal); E66.01 Morbid (severe) obesity due to excess calories; Z68.35 Body mass index [BMI] 35.0-35.9, adult; K29.50 Unspecified chronic gastritis without bleeding; K29.80 Duodenitis without bleeding; I10 Essential (primary) hypertension; I25.10 Atherosclerotic heart disease of native coronary artery without angina pectoris; Z95.5 Presence of coronary angioplasty implant and graft; I25.2 Old myocardial infarction; E78.5 Hyperlipidemia, unspecified; E11.9 Type 2 diabetes mellitus without complications; Z79.82 Long term (current) use of aspirin; Z79.84 Long term (current) use of oral hypoglycemic drugs; Z79.85 Long-term (current) use of injectable non-insulin antidiabetic drugs; Z79.899 Other long term (current) drug therapy; Z88.2 Allergy status to sulfonamides; F17.210 Nicotine dependence, cigarettes, uncomplicated
CPT/HCPCS: 43239; 82947; 88305; 88313; 88342; J2003; J2704; J3010

== ENCOUNTER → 2024-11-10 11:00 | Outpatient (BNV) | payer OTHER, SELFPAY | PROVIDERS: PCP Nurse Practitioner Family; Visit Provider Surgery | DX: K21.9 Gastro-esophageal reflux disease without esophagitis (principal); K29.70 Gastritis, unspecified, without bleeding; K29.80 Duodenitis without bleeding | CPT/HCPCS: 43239 ==

== ENCOUNTER 2024-11-23 12:43 | Outpatient (AMB) | payer OTHER, SELFPAY ==
--- NOTE | 2024-11-23 12:00 | A.OFFWM_ITS ---
Intake Intake Visit Reasons: TV BH F/U Allergies Sulfa (Sulfonamide Antibiotics) Allergy (Mild, Verified 09/11/24 11:53) itchy PFSH Medical History (Updated 11/09/24 @ 07:47 by Caroline Aggarwal RN) Anemia GERD (gastroesophageal reflux disease) Non-insulin dependent type 2 diabetes mellitus DJD (degenerative joint disease) Hyperlipidemia Hypertension History of [place] (myocardial infarction) CAD (coronary artery disease) BMI 35.0-35.9,adult Obesity Surgical History (Updated 11/10/24 @ 11:10 by Caroline Aggarwal RN) H/O colonoscopy Hx of heart artery stent Hx of carpal tunnel repair Family History (Updated 09/05/24 @ 15:52 by Kristi Richard CMA) Mother No problems noted. Father Renal cancer Diabetes Heart problem Social History (Updated 09/05/24 @ 15:56 by Kristi Richard CMA) Alcohol intake: never Patient Tobacco Use Status: Current everyday Tobacco user Tobacco use type: Cigarette Cigarettes Per Day: 12 Behavioral Health Assessment Weight Management Therapy Therapy Notes Details The patient is a 59-year-old female presenting for a follow up visit to complete her behavioral health assessment as part of the surgical weight loss program. The patient has a history of therapy for depression many years ago and was prescribed Wellbutrin, which worsened her symptoms. She is not currently in counseling or receiving any mental health treatment and is not taking psychiatric medications. The patient denies any history of inpatient care, mental health crises, or safety concerns related to self-harm, suicidal ideation (SI), or suicidal attempts (SA). The patient has reported mild challenges with emotional eating, but BES scores suggest a low risk for binge eating behavior. PHQ-9 scores indicate mild depressive symptoms, which she attributes to current sources of stress both at work and at home. These stressors will be addressed through supportive therapy with this provider. Additionally, the mental status exam is within normal limits, suggesting that her functioning is not impaired. The patient is cleared from a behavioral health standpoint and will continue meeting with this provider for supportive therapy both pre- and post- operatively. The therapeutic focus will be on stress management, habit building, decision-making, and reinforcing commitment to the weight-loss journey to ensure long-term success. Presenting Concerns Referral Source WMP-Provider Reason for referral Completion of behavioral health assessment as part of proce ss for weight-loss surgery. Precipitating Event Obesity. Living Situation Current Living Situation Own At risk of losing current housing? No Satisfied with current living situation? No Comments PT lives with partner. Food/Weight/Diet Expectations of change PT started the program on 09/11/2024 at 185 lbs. Recent weight as of 10/28/24: 179Lbs The initial goal is to lose 10% of her weight before surgery, which is about 18lbs. Ultimate weight goal: 167lbs before surgery Patient goals are better health and weight loss, get out of medication if possible. PT is implementing the following: Current meal plan: Using the right BMI mercedes, has a combination of shakes, bars and 1 meal. Exercise plan: outdoor walking. Planning for 5 days a week, 400 calories each day. Scale: Yes Communication w/ Provider: weekly text, Saturdays. History/Relationship with food The patient reports being an emotional eater, often using food to cope with both good and bad days. She learned this behavior from her father, who was overweight and would eat his feelings. She tends to eat more when alone but denies eating after dinner. In the past, she has eaten even when not physically hungry. Additionally, she gave up soda 20 years ago. Example of meals before starting the program: Breakfast: @7am when arrived to work like a [place], Am snack: PB crackers. @9am yogurt. Lunch: @12pm sandwich and a bag of chips. PM snack: cookies a co-worker would bring. Dinner: homemade. a lot of grilled chicken or fried things. PM snacks: none. Drinks/Liquids: ice tea, coffee (sips throughout the day) History/Relationship with weight The patient reports being obese during childhood, weighing 183 lbs at age 13. Over the past 10 years, her weight has ranged from a low of 140 lbs to a high of 228 lbs. She would like to reach 130 lbs, but recalls that when she was around 140 lbs about 30 years ago, she received unwanted attention from males, which made her uncomfortable. She struggled to cope with this and reverted to old habits. The patient also reports that her father and two sisters are obese. History/Relationship with dieting She has attempted various diets, including Weight Watchers, Atkins, periods of restriction, self-guided diets, semaglutide, and [id number] pills, but consistently ends up gaining back more weight than she lost. Binge Eating Do you frequently eat large amounts of food in short periods of time, not feeling physically hungry? No Do you feel out of control when you eat a large amount of food in a short period of time? No Do you eat large amounts of food rapidly and typically alone? Yes Night Eating Do you wake up at least once during the night to eat? No If you wake up in the night, do you find that it is necessary to eat something in order to fall back asleep? No Do you have little or no appetite in the morning and feel very hungry in the evening, often overeating between dinner and when you go to bed? No Social History Family history and relationship Never , she had no children. she has been in a relationship since 2014. His partner has 3 adult children, his oldest lives in their second floor. Mother is alive, father due to kidney cancer. Parents when she was 16. She has 2 sisters and 1 brother. PT reports good family relationships. Pt reports not feeling happy with current partner. Parental/Familial transit bus operator obligations None yet, but close to start caring for her mother. Developmental history and status None. Social support Mother and sister. Community support None. Mormon/Spirituality Anglican. Cultural/Ethnic information . Legal Involvement and History Current or historical involvement with the legal system? None. Education Highest grade completed Some college. Preferred learning style Learn by doing Currently enrolled in educational program? No Interested in further educational program? 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 ) Wants help to find employment? 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 Listen to podcast Financial Situation Describe current financial situation Occasional struggle Financial assistance? None Service Service? No Mental Health and Addiction Treatment Current/Past substance abuse? No Comments Alcohol: Socially. 1-2 times at year. Cigarettes/Tobacco: smoking, down to 12 at day. Cannabis/Edibles: None. Current/Past addictive behavior concerns? Yes (Currently does scratch tickets, at last $100 at week. ) Psychiatric history The patient attended therapy many years ago for depression and was prescribed Wellbutrin, which worsened her symptoms. She is not currently in counseling or receiving any mental health treatment and does not take psychiatric medications. She denies any history of inpatient care, crises, or safety concerns related to self-harm, suicidal ideation (SI), or suicidal attempts (SA). Medical and Physical Health Summary Additional Medical History not covered in history None aditional Sexual History concerns None reported Physical exam in the last year? Yes Pain Screening Current pain? No Pain in the last few months? No Medications Is the patient compliant with medications? Yes Does the patient have Perez Guardian in place? Not applicable Does the patient use complimentary health approaches? No Trauma/Abuse History History of trauma? Yes Questionnaires PHQ-9 Over the last 2 weeks, how often have you been bothered by any of the following problems? 1. Little interest or pleasure in doing things: several days 2. Feeling down, depressed, or hopeless: nearly every day 3. Trouble falling or staying asleep, or sleeping too much: several days (sleeps better when takes magnesium. ) 4. Feeling tired or having little energy: several days 5. Poor appetite or overeating: several days (Been eating more. ) 6. Feeling bad about yourself - or that you are a failure or have let yourself or your family down: several days (Mostly regret around current relationship. ) 7. Trouble concentrating on things, such as reading the newspaper or watching television: not at all 8. Moving or speaking so slowly that other people could have noticed. Or the opposite - being so fidgety or restless that you have been moving around a lot more than usual: not at all 9. Thoughts that you would be better off or of hurting yourself in some way: not at all Total score: 8 Depression Screening Interpretation: Positive Depression Screening Done: Yes 87396 - PHQ-9 Billing: Yes Source: Developed by Drs. David Shoemaker, Amy Galvez, Carlton Dallas and colleagues, with an educational russel from [employer]. Binge Eating Scale Group 1 A. I don't feel self-conscious about my wt. or body size when I'm with others. B. I feel concerned about how I look to others, but it normally does not make me fell disappointed with myself C. I do get self-conscious about my appearance and wt. which makes me feel disappointed in myself. D. I feel very self-conscious about my wt. and frequently I feel intense shame and disgust for myself. I try to avoid social contacts because of my self- consciousness. Response Group 1: C Group 2 A. I don't have any difficulty eating slowly in the proper manner. B. Although I seem to gobble down foods, I don't end up feeling stuffed because of eating to much. C. At times, I tend to eat quickly and then, I feel uncomfortably full afterwards. D. I have the habit of bolting down my food, without really chewing it. When this happens I usually feel uncomfortably stuffed because I've eaten to much. Response Group 2: C Group 3 A. I feel capable to control my eating urges when I want to. B. I feel like I have failed to control my eating more than the average person. C. I feel utterly helpless when it comes to feeling in control of my eating urges. D. Because I feel so helpless about controlling my eating I have become very desperate about trying to get control. Response Group 3: B Group 4 A. I don't have the habit of eating when I'm bored. B. I sometimes eat when I'm bored, but often I'm able to get busy and get my mind off food. C. I have a regular habit of eating when I'm bored, but occasionally, I can use some other activity to get my mind off eating. D. I have a strong habit of eating when I'm bored. Nothing seems to help me breath the habit. Response Group 4: C Group 5 A. I'm usually physically hungry when I eat something. B. Occasionally, I eat something on impulse even though I really am not hungry. C. I have the regular habit of eating foods, that I might not really enjoy, to satisfy a hungry feeling even though physically, I don't need the food. D. Although I'm not physically hungry, I get a hungry feeling in my mouth that only seems to be satisfied when I eat a food, like sandwich, that fills my mouth. Sometimes, when I eat the food to satisfy my mouth hunger, I then spit the food out so I won't gain weight. Response Group 5: B Group 6 A. I don't feel any guilt or self-hate after I overeat. B. After I overeat, occasionally I feel guilt or self-hate. C. Almost all the time I experience strong guilt or self-hate after I overeat. Response Group 6: B Group 7 A. I don't lose total control of my eating when dieting even after periods when I overeat. B. Sometimes when I eat a forbidden food on a diet, I feel like I blew it and eat even more. C. Frequently, I have the habit of saying to myself, I've blown it now, why not go all the way, when I overeat on a diet. When that happens I eat more. D. I have a regular habit of starting a strict diets for myself but I break the diets by going on an eating binge. My life seems to be either a feast or famine. Response Group 7: B Group 8 A. I rarely eat so much food that I feel uncomfortably stuffed afterwards. B. Usually about once a month, I each such a quantity of food, I end up feeling very stuffed. C. I have regular periods during the month when I eat large amounts of food, either at mealtime or at snacks. D. I eat so much food that I regularly feel quite uncomfortable after eating and sometimes a bit nauseous. Response Group 8: C Group 9 A. My level of calorie intake does not go up very high or go down very low on a regular basis. B. Sometimes after I overeat, I will try to reduce my caloric intake to almost nothing to compensate for the excess calories I've eaten. C. I have a regular habit of overeating during the night. It seems that my routine is not to be hungry in the morning but overeat in the evening. D. In my adult years, I have had week-long periods where I practically starve myself. This follows periods when I overeat. It seems I live a life of either feast or famine. Response Group 9: A Group 10 A. I usually am able to stop eating when I want to. I know when enough is enough. B. Every so often, I experience a compulsion to eat which I can't seem to control. C. Frequently, I experience strong urges to eat which I seem unable to control, but at other times I can control my eating urges. D. I feel incapable of controlling urges to eat. I have a fear of not being able to stop eating voluntarily. Response Group 10: B Group 11 A. I don't have any problem stopping eating when I feel full. B. I usually can stop eating when I feel full but occasionally overeat leaving me feeling uncomfortably stuffed. C. I have a problem stopping eating once I start and usually I feel uncomfortably stuffed after I eat a meal. D. Because I have a problem not being able to stop eating when I want, I sometimes have to induce vomiting to relieve my stuffed feeling. Response Group 11: B Group 12 A. I seem to eat just as much when I'm with others, Family social gatherings as when I'm by myself. B. Sometimes, when I'm with other persons, I don't eat as much as I want to eat because I'm self-conscious about my eating. C. Frequently, I eat only a small amount of food when others are present, because I'm very embarrassed about my eating. D. I feel so ashamed about overeating that I pick times to overeat when I know no one will see me. I feel like a closet eater. Response Group 12: A Group 13 A. I eat three meals a day with only an occasional between meal snack. B. I eat 3 meals a day, but I also normally snack between meals. C. When I am snacking heavily, I get in the habit of skipping regular meals. D. There are regular periods when I seem to be continually eating, with no planned meals. Response Group 13: B Group 14 A. I don't think much about trying to control unwanted eating urges. B. At least some of the time, I feel my thoughts are pre-occupied with trying to control my eating urges. C. I feel that frequently I spend much time thinking about how much I ate or about trying not to eat anymore. D. It seems to me that most of my waking hours are pre-occupied by thoughts about eating or not eating. I feel like I'm constantly struggling not to eat. Response Group 14: C Group 15 A. I don't think about food a great deal. B. I have strong craving for food but they last only for brief periods of time. C. I have days when I can't seem to think about anything else but food. D. Most of my days seem to be pre-occupied with thoughts about food. I feel like I live to eat. Response Group 15: C Group 16 A. I usually know whether or not I'm physically hungry. I take the right portion of food to satisfy me. B. Occasionally, I feel uncertain about knowing whether or not I'm physically hungry. A these times it's hard to know how much food I should take to satisfy me. C. Even though I might know how many calories I should eat, I don't have any idea what is a normal amount of food for me. Response Group 16: B Binge Eating Score: 20 Score less than 17 Minimal Risk Score between 18-26 Moderate Risk Score between 27-46 High Risk Assessment & Plan Assessment & Plan (1) BMI 35.0-35.9,adult: Code(s): Z68.35 - Body mass index [BMI] 35.0-35.9, adult (2) Adjustment disorder, unspecified: Code(s): F43.20 - Adjustment disorder, unspecified (3) Inappropriate diet or eating habits: Code(s): Z72.4 - Inappropriate diet and eating habits Plan The patient is cleared from a behavioral health standpoint and will continue meeting with this provider for supportive therapy both pre- and post- operatively. The therapeutic focus will be on stress management, habit building, decision-making, and reinforcing commitment to the weight-loss journey to ensure long-term success. F/up in 1 month. Next mercedes: 12/22/2024 at 1pm, In person. Telehealth Telehealth Telehealth Platform: [facility] Location of provider rendering services: other Location of patient: other (Work.) Patient Identification confirmed using: Name, : Yes Telehealth method: voice only Patient verbally consented to treatment: Yes Patient verbally consented to billing insurance company: Yes Patient informed of any privacy concerns related to visit: Yes Minutes spent on Phone/Video with Pt.: 35 Coding Level of Care Code Established Pt Tele Psytx 30 mins ([id number]) Patient Type Established Diagnoses BMI 35.0-35.9,adult Z68.35 Adjustment disorder, unspecified F43.20 Inappropriate diet or eating habits Z72.4 Additional Codes PHQ-9 - 02847 - PHQ-9 Billing: Yes ([id number]) Time Spent (min) 35
--- OUTSIDE RECORDS SUMMARY | 2024-11-23 13:44 | XMS_ITS | Data Portability ---
Author Organization [facility] [address] Address [address] [place] [address] Assessment No assessment recorded. Plan of Treatment Reminders Order Date Submit Date Provider Last Modified By Organization Details Last Modified Time Details Appointments None recorded. Lab None recorded. Referral None recorded. Procedures None recorded. Surgeries None recorded. Imaging None recorded. Medication Orders clindamycin phosphate 1 % topical solution [address]/Pharmacy #2339, [address] [place] [address], [address], 3 14:02:12 cephalexin 500 mg capsule 2022 023 [facility]/Pharmacy #2339, [address] [place] [address], [address], 3 08:49:08 mupirocin 2 % topical ointment 2022 023 [facility]/Pharmacy #2339, [address] [place] [address], [address], 3 08:49:09 Patient TargetsNo targets recorded. Patient Instructions Encounter Date Encounter Id Patient Instructions Last Modified By Organization Details Last Modified Time 02/09/2023 [id number] skin abscess: care instructions eal Not available 02/09/2023 08:49:14 cellulitis: care instructions [email or web address] Not available 02/09/2023 08:49:14 Reason for Referral None Reported. Problems Name Problem SNOMED Code Status Onset Date Resolution Date Notes Provider Name and Address Organization Details Recorded Time Diabetes mellitus 99887765 Active 2022 [facility] 3 08:19:53 Hypertensive disorder 87228418 Active 2022 Soraida Hahnlexie rae PA - [facility] 3 08:19:59 Problem Notes None recorded. Medical Equipment None Reported. Allergies Allergen ID Allergen Name Allergen Category Reaction Reaction Severity Criticality Documentation Date Start Date Code Code System Note Provider Name and Address Organization Details Recorded Time 686725 Substance with sulfonami de structure and antibacte rial mechanism of action (substanc e) medicatio n hives Not available Not available 02/09/2023 30509 8003 SNOMED Soraida Degroot null, PA - [...] Updated DateTime 3 157.48 cm 35.1 kg/m2 42800.7 4 g 99 % 99 % 10 79 /min 20 /min 98.5 [degF] 141 mm[Hg] 85 mm[Hg] Soraida LINARES [employer] 08:21:42 Social History Question Answer Notes LastModified by Organizat ion Details LastModified Time Tobacco Smoking Status Current Every Day Smoker [facility] [employer] 02/09/2023 08:20:20 What Is Your Level Of [...] 30 mcg/0.3 mL dose 06/03/2021 completed Soraida [place] null, PA - [facility] 02/09/2023 08:19:10 Influenza, split virus, quadrivalent, PF 05/15/2021 completed Soraida Zane null, PA - [facility] 02/09/2023 08:19:10 Past Encounters Encounter ID Performer Location Encounter Start Date Encounter Closed Date Diagnosis/Indication Diagnosis SNOMED-CT Code Diagnosis ICD10 Code Diagnosis Note [id number] [address] [address] 06/07/2022 11:50:25 06/07/2022 12:43:05 [id number] Jak Mensah MD [address] [address] 02/09/2023 08:08:40 02/09/2023 08:46:53 Abscess 503904547 L02.91 Use the topical mupirocin on the area of the right groin.Very important to use warm compressed 4 times per day Please follow up with PCP or Urgent Care in 3-5 days if no improvemen t or if any new symptoms occur that are concerning . 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 the [...] Kinsey Member ID Guarantor Name 06/07/2022 1 [facility] [id number] Sera Valentine [id number] Sera Valentine 02/09/2023 1 [facility] [id number] Sera Valentine [id number] Sera Valentine Notes Date Note Type Note Provider Name and Address Organization Details Recorded Time 02/09/2023 text/html Skin Redness UCReported bypatient.Quality :painful;erythema tous;raised;warm Severity:worsenin g Onset:gradual onset Symptoms:no fever; no nausea; no vomiting;swelling Notes:6 days right groin. History of abscesses Jak Mensah MD [address] [place], [address], [place] - [facility] 02/10/2023 14:04:32 OBGyn Episode No OBEpisode recorded.
--- OUTSIDE RECORDS SUMMARY | 2024-11-23 13:44 | XMS_ITS | Continuity of Care Document ---
Author Organization [facility] Address [address] [facility] [address] [place], [place] Phone [phone] Care Team Providers Care Shipping Room Helper Name Role Phone Radha Randle MD Care Team Information Receiv er Unavailable MCKENZIE AGUILAR M.D. Care Team Information Rec eiver Unavailable Radha Randle MD Primary Care Physician Unava ilable Problems Active Problems Provider Date Simple goiter Mckenzie Aguliar M.D. Onset: 0 02/14/2024 Essential hypertension Mckenzie [...] bandage daily 50units E11.Willard Aguilar M.D. 02/05/2021 Ajbewymzdiw2yg Tablets Take 1/2 To 1 Tablet By Mouth Every Day as Needed 90tabs Mckenzie Aguilar M.D. 12/28/2018 Freestyle Lite Blood Glucose Monitoring SystemDevice uad 1units E11Veda Aguilar M.D. 12/23/2018 Freestyle Lite TestStrips 1 strip every day 100units E11.Willard Aguilar M.D. 12/23/2018 Metoprolol Pnprseso89wg Tablets TK 1 T PO bid Unknown Aspirin Ec81mg Tablets DR 1 by mouth every day 30tabs Unknown 000 Multi Vitamin DailyTablets 1 by mouth every day Unknown 000 Metformin YPU069re Tablets take 1 tablet by mouth 3 times a day 270tabs Mckenzie Aguilar M.D. Tumeric body aches Unknown 0 Losartan Kojrcxpjw996qw Tablets 1 by mouth every day Unknown 000 Vit D plans to stop since surgeon told her it was high(10/2024) Unknown History Medications Apfsixjee2xr/0.5ML Solution Pen-Inject inject 3 mg subcutaneously once a week 2ml E11.8 Mckenzie Aguilar M.D. 12/16/2023 - 02/14/2024 Xfojnvfzw2is/0.5ML Solution Pen-Inject inject 3 mg subcutaneously once a week 6ml Mckenzie Aguilar M.D. 11/05/2023 - 02/14/2024 Trulicity4.5mg/0.5ML Solution Pen-Inject 4.5mg once a week 2ml E11.8 Mckenzie Aguilar M.D. 07/09/2023 - 12/16/2023 Pztpqpy566it/ml Soln Prefill Syringe inject subcutaneously 140mg every month 1ml E78.5 Mckenzie Aguilar M.D. 07/09/2023 - 10/04/2023 E11.8 I25.9 Nsksxepw717hs/ml Solution Auto-Inject inject one pen (150mg) subcutaneously every 2 weeks 6ml E78.5 Mckenzie Aguilar M.D. 07/08/2023 - 07/09/2023 Ujlinjtds8bs/0.5ML Solution Pen-Inject inject 3.0mg subcutaneously once a week 6ml E11.8 Mckenzie Aguilar M.D. 05/24/2023 - 07/09/2023 Mprkwptl72ls/ml Solution Auto-Inject inject one pen (75mg) subcutaneously every 2 weeks 2ml E78.5 Mckenzie Aguilar M.D. 02/15/2023 - 07/08/2023 Ozempic (1 MG/Dose)2mg/1.5ML Solution Pen-Inject 1mg subcutaneously every week 9ml E11.8 Mckenzie Aguilar M.D. 10/11/2019 - 01/12/2020 Bznsknsil77nj Tablets Take 1 Tablet By Mouth Once A Day 30tabs E78.Reinier Aguilar M.D. 04/12/2019 - 01/12/2020 Trulicity1.5mg/0.5ML Solution Pen-Inject Inject 1.5MG Subcutaneously Every Week 6ml E11.8 Mckenzie Aguilar M.D. 12/26/2018 - 05/24/2023 Oqedoid0rf/Dose Solution Pen-Inject inject 1mg once a week 9ml E11.8 Mckenzie Aguilar M.D. 12/23/2018 - 12/26/2018 Losartan Mjilclimf13gt Tablets 1 by mouth every day Mckenzie Aguilar M.D. 12/23/2018 - 10/04/2023 Trulicity0.75mg/0.5ML Solution Pen-Inject 0.75 mg subcutaneous every week 6units E11Veda Aguilar M.D. 10/19/2016 - 12/23/2018 Wwerrsakh59ep Tablets Take 1 Tablet By Mouth Once A Day 30tabs E78.Reinier Aguilar M.D. 09/25/2016 - 12/23/2018 Nudwt55jl Tablets take 1 tablet by mouth once a day 30tabs E78.5 Mckenzie Aguilar M.D. 06/18/2016 - 09/25/2016 Srwndthlbyt0fj Tablets Take 1 Tablet By Mouth Daily 90tabs Mckenzie Aguilar M.D. 01/21/2016 - 06/18/2016 Mvit Umu Facundo in Am Aime Aguilar M.D. 12/18/2015 - 06/18/2016 Paopolf8bo Tablets 1 by mouth every day-no substitution. 90tabs E78.5 Mckenzie Aguilar M.D. 12/18/2015 - 10/19/2016 Oglgpvw61wv Tablets take 1 tablet by mouth daily. E78.5 . 10/11/2014 - 12/18/2015 Swjfkgzeaur3ep Tablets Take 1 Tablet By Mouth Daily 90tabs Mckenzie Aguilar M.D. 02/16/2014 - 12/18/2015 Coq10 Gummies Pfnul08eo Chewtabs ?amt Unknown 0 - 02/14/2024 Plexus diet med drink E11.8 Unknown - 11/10/2022 Krill Wpe506xz Capsules 1/d Unknown - 11/10/2022 Wldhtsfz724tu Capsules 1/d Unknown - 12/23/[address] SEALS 1 C PO qd Unknown - 10/19/2016 Doxycycline Povkwxefhlv316qb Capsules Unknown - 06/18/2016 Mvit/[place] Epa/Cell Healy/Provexcv/Recover AlMela Facundo packet of pills each night Unknown - 06/18/2016 Kzxvamtwjh073cr Capsules Annabel Randle - 10/10/2014 Wlomgwu11fl Tablets take 1 tablet by mouth daily. Annabel Randle - 10/11/2014 Doxycycline Wtcfrzu886dj Tablets Unknown - 10/10/2014 Losartan Phypsdojp73ui Tablets 1 by mouth every day Unknown - 12/23/2018
== END 2024-11-23 12:43 | disposition home or self-care (01) ==
LOC: HO.HBST 12:43
PROVIDERS: PCP Nurse Practitioner Family; Visit Provider Counselor Mental Health
DX: F43.20 Adjustment disorder, unspecified (principal); Z68.35 Body mass index [BMI] 35.0-35.9, adult; Z72.4 Inappropriate diet and eating habits
CPT/HCPCS: 90832

== ENCOUNTER → 2024-11-23 12:43 | Outpatient (BNVA) | payer OTHER, SELFPAY | PROVIDERS: PCP Nurse Practitioner Family; Visit Provider Counselor Mental Health ==

== ENCOUNTER 2024-11-24 09:50 | Outpatient (REF) | payer OTHER, SELFPAY ==
--- NOTE | ~2024-11-24 | FL_ITS ---
EXAMINATION: XR FLUOROSCOPY UPPER GI SERIES CLINICAL INFORMATION: Obesity, unspecified, preoperative. Patient has no complaints. COMPARISON: None TECHNIQUE: Fluoroscopic air contrast upper GI examination was performed utilizing standard techniques with thin and thick barium and effervescent granules. Numerous spot images were obtained. Several fluoroscopic image hold cine sequences were also obtained. FINDINGS: UPPER GI SERIES: Lateral cine images of the oropharynx and hypopharynx demonstrate normal swallow mechanism with normal epiglottic inversion and soft palate elevation. No laryngeal penetration, glottic or subglottic aspiration identified. No nasopharyngeal reflux present. Hypopharyngeal structures appear normal without evidence of mass or diverticulum. 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 Dual and single contrast images of the esophagus demonstrate normal caliber, contour, and mucosal pattern. No evidence of stricture, mass, or ulcerations identified. Esophageal peristalsis was normal. No evidence of hiatus hernia identified. Normal GE junction. No significant gastroesophageal reflux was seen during the course of the examination and on reflux views. Dual contrast and single contrast images of the stomach demonstrated normal contour and rugal fold pattern. Diffuse thickening of the areae gastricae suggestive of gastritis. No mass or gross ulceration. Contrast freely passed into the gastric antrum and duodenal bulb without delay. Single and air-contrast images of the duodenal bulb demonstrate no abnormality. The duodenal sweep has a normal appearance, course, and mucosal fold appearance. FLUOROSCOPY TIME: 2 minutes 19 seconds Number of Spot Images:8 Number of cines obtained: 11 DOSE AREA PRODUCT: 2709 uGy-m2 (microgray-meter squared) FL/FL upper GI w air IMPRESSION: 1. Mild to moderate cricopharyngeal achalasia. 2. Diffuse thickening of the areae gastricae suggestive of gastritis. 3. No evidence of hiatus hernia. 4. No gross gastroesophageal reflux identified during the course of the exam. Electronically signed by: Charles York MD 11/24/2024 11:53 AM EDT
--- OUTSIDE RECORDS SUMMARY | 2024-11-24 11:00 | XMS_ITS | Continuity of Care Document ---
Author Organization [facility] Address [address] [facility] [address] [place], [place] Phone [phone] Care Team Providers Care Canteen Operator Name Role Phone Radha Randle MD Care [...] bandage daily 50units E11.Willard Aguilar M.D. 02/05/2021 Ghkzyjvkkqy4ke Tablets Take 1/2 To 1 Tablet By Mouth Every Day as Needed 90tabs Mckenzie Aguilar M.D. 12/28/2018 Freestyle Lite Blood Glucose Monitoring SystemDevice uad 1units E11Veda Aguilar M.D. 12/23/2018 Freestyle Lite TestStrips 1 strip every day 100units E11.Willard Aguilar M.D. 12/23/2018 Metoprolol Vpmatjov13um Tablets TK 1 T PO bid Unknown Aspirin Ec81mg Tablets DR 1 by mouth every day 30tabs Unknown 000 Multi Vitamin DailyTablets 1 by mouth every day Unknown 000 Metformin WWD933pk Tablets take 1 tablet by mouth 3 times a day 270tabs Mckenzie Aguilar M.D. Tumeric body aches Unknown 0 Losartan Wblxjqhiv815gn Tablets 1 by mouth every day Unknown 000 Vit D plans to stop since surgeon told her it was high(10/2024) Unknown History Medications Gofpguypy0ju/0.5ML Solution Pen-Inject inject 3 mg subcutaneously once a week 2ml E11.8 Mckenzie Aguilar M.D. 12/16/2023 - 02/14/2024 Voerqbnwx8ac/0.5ML Solution Pen-Inject inject 3 mg subcutaneously once a week 6ml Mckenzie Aguilar M.D. 11/05/2023 - 02/14/2024 Trulicity4.5mg/0.5ML Solution Pen-Inject 4.5mg once a week 2ml E11.8 Mckenzie Aguilar M.D. 07/09/2023 - 12/16/2023 Vmaghxb968he/ml Soln Prefill Syringe inject subcutaneously 140mg every month 1ml E78.5 Mckenzie Aguilar M.D. 07/09/2023 - 10/04/2023 E11.8 I25.9 Yxathzni960uk/ml Solution Auto-Inject inject one pen (150mg) subcutaneously every 2 weeks 6ml E78.5 Mckenzie Aguilar M.D. 07/08/2023 - 07/09/2023 Bqrhjoqqu4ki/0.5ML Solution Pen-Inject inject 3.0mg subcutaneously once a week 6ml E11.8 Mckenzie Aguilar M.D. 05/24/2023 - 07/09/2023 Bcxdecbg13qg/ml Solution Auto-Inject inject one pen (75mg) subcutaneously every 2 weeks 2ml E78.5 Mckenzie Aguilar M.D. 02/15/2023 - 07/08/2023 Ozempic (1 MG/Dose)2mg/1.5ML Solution Pen-Inject 1mg subcutaneously every week 9ml E11.8 Mckenzie Aguilar M.D. 10/11/2019 - 01/12/2020 Rasejtrxl31fd Tablets Take 1 Tablet By Mouth Once A Day 30tabs E78.Reinier Aguilar M.D. 04/12/2019 - 01/12/2020 Trulicity1.5mg/0.5ML Solution Pen-Inject Inject 1.5MG Subcutaneously Every Week 6ml E11.8 Mckenzie Aguilar M.D. 12/26/2018 - 05/24/2023 Jbqwpww1np/Dose Solution Pen-Inject inject 1mg once a week 9ml E11.8 Mckenzie Aguilar M.D. 12/23/2018 - 12/26/2018 Losartan Gdmwjaruy25zt Tablets 1 by mouth every day Mckenzie Aguilar M.D. 12/23/2018 - 10/04/2023 Trulicity0.75mg/0.5ML Solution Pen-Inject 0.75 mg subcutaneous every week 6units E11Veda Aguilar M.D. 10/19/2016 - 12/23/2018 Smuzvcbyq07xx Tablets Take 1 Tablet By Mouth Once A Day 30tabs E78.Reinier Aguilar M.D. 09/25/2016 - 12/23/2018 Bdfve50ov Tablets take 1 tablet by mouth once a day 30tabs E78.5 Mckenzie Aguilar M.D. 06/18/2016 - 09/25/2016 Ofxvzvqkigm3sm Tablets Take 1 Tablet By Mouth Daily 90tabs Mcknezie Aguilar M.D. 01/21/2016 - 06/18/2016 Mvit Umu Facundo in Am Aime Aguilar M.D. 12/18/2015 - 06/18/2016 Qubomin9uv Tablets 1 by mouth every day-no substitution. 90tabs E78.5 Mckenzie Aguilar M.D. 12/18/2015 - 10/19/2016 Kfsjszx69fh Tablets take 1 tablet by mouth daily. E78.5 . 10/11/2014 - 12/18/2015 Lmavrcthkkz9qd Tablets Take 1 Tablet By Mouth Daily 90tabs Mckenzie Aguilar M.D. 02/16/2014 - 12/18/2015 Coq10 Gummies Zkitb72rh Chewtabs ?amt Unknown 0 - 02/14/2024 Plexus diet med drink E11.8 Unknown - 11/10/2022 Krill Gyl814wg Capsules 1/d Unknown - 11/10/2022 Xkfjqkep491ub Capsules 1/d Unknown - 12/23/[address] SEALS 1 C PO qd Unknown - 10/19/2016 Doxycycline Pkufxvmdrzk543eg Capsules Unknown - 06/18/2016 Mvit/[place] Epa/Cell Healy/Provexcv/Recover AlMela Facundo packet of pills each night Unknown - 06/18/2016 Elizcabsvx978gp Capsules Annabel Randle - 10/10/2014 Ohqqhvm59oh Tablets take 1 tablet by mouth daily. Annabel Randle - 10/11/2014 Doxycycline Pzyulwy737rl Tablets Unknown - 10/10/2014 Losartan Ygbvuglnu49uq Tablets 1 by mouth every day Unknown - 12/23/2018
== END 2024-11-24 09:51 | disposition home or self-care (01) ==
LOC: HO.XRAY 09:50
PROVIDERS: Visit Provider Surgery
DX: K21.9 Gastro-esophageal reflux disease without esophagitis (principal); E66.9 Obesity, unspecified; Z68.35 Body mass index [BMI] 35.0-35.9, adult; E11.9 Type 2 diabetes mellitus without complications; E78.5 Hyperlipidemia, unspecified; I25.10 Atherosclerotic heart disease of native coronary artery without angina pectoris; I10 Essential (primary) hypertension
CPT/HCPCS: 74246

== ENCOUNTER → 2024-11-24 09:53 | Outpatient (BNV) | payer OTHER, SELFPAY | PROVIDERS: Visit Provider Radiology Diagnostic Radiology | DX: E66.9 Obesity, unspecified (principal); Z01.818 Encounter for other preprocedural examination | CPT/HCPCS: 74246 ==

== ENCOUNTER 2025-03-13 06:20 | Outpatient (REF) | payer OTHER, SELFPAY ==
--- OUTSIDE RECORDS SUMMARY | 2025-03-13 06:22 | XMS_ITS | Data Portability ---
Author Organization [facility], [address] Address [address] [place] [address] Assessment No assessment recorded. Plan of Treatment Reminders Order Date Submit Date Provider Last Modified By Organization Details Last Modified Time Details Appointments None recorded. Lab None recorded. Referral None recorded. Procedures None recorded. Surgeries None recorded. Imaging None recorded. Medication Orders clindamycin phosphate 1 % topical solution [address]/Pharmacy #2339, [address] [place] [address], [address], 3 14:02:12 cephalexin 500 mg capsule 2022 023 [facility]/Pharmacy #2339, [address] [place] [address], [address], 3 08:49:08 mupirocin 2 % [facility]ment [facility]22 [facility]23 [facility] [address] [place] [address], [address], 3 08:49:09 Patient TargetsNo targets recorded. Patient Instructions Encounter Date Encounter Id Patient Instructions Last Modified By Organization Details Last Modified Time 02/09/2023 [id number] skin abscess: care instructions skeal Not available 02/09/2023 08:49:14 cellulitis: care instructions [email or web address] Not available 02/09/2023 08:49:14 Reason for Referral None Reported. Problems Name Problem SNOMED Code Status Onset Date Resolution Date Notes Provider Name and Address Organization Details Recorded Time Diabetes mellitus 62149604 Active 2022 Soraida Hahnbe null PA - [facility] 3 08:19:53 Hypertensive disorder 93949760 Active 2022 Soraidaneela Degroot null PA - [facility] 3 08:19:59 Problem Notes None recorded. Medical Equipment None Reported. Allergies Allergen ID Allergen Name Allergen Category Reaction Reaction Severity Criticality Documentation Date Start Date Code Code System Note Provider Name and Address Organization Details Recorded Time 633288 Substance with sulfonami de structure and antibacte rial mechanism of action (substanc e) medicatio n hives Not available Not available 02/09/2023 57330 8003 SNOMED Soraida Degroot null PA - [facility] 3 08:19:05 Medications [...] saturation in Arterial blood by Pulse oximetry Heart rate Respiratory rate Body temperature Systolic And Diastolic Provider Name and Address Organization Details Last Updated DateTime 157.48 cm 35.1 kg/m2 03232.7 4 g 99 % 99 % 79 /min 20 /min 98.5 [degF] 141/85 mm[Hg] Soraida LINARES [employer] 08:21:42 Social History Question Answer Notes LastModified by [employer] Details LastModified Time Tobacco Smoking Status Current Every Day Smoker Soraida rae Neozone Swapna Rayspan 02/09/2023 08:20:20 Have You Had Direct Contact, Or Contact During Intimacy, With Monkeypox Rash, Scabs, Or Body Fluids From A Person With Monkeypox? No Information not available 02/09/2023 How Much Tobacco Do You Smoke? 0.5 PPD Information not available 02/09/2023 Have You Recently Traveled Abroad? No Information not available 02/09/2023 Sex: Unknown Functional Status Question Answer Note LastModified by [employer] Details LastModified Time Do you use any illicit or recreational drugs? No Information not available 02/09/2023 Do you or have you ever used any other forms of tobacco or nicotine? No Information not available 02/09/2023 What is your level of alcohol consumption? None Information not available 02/09/2023 Mental Status None recorded. Family History Relationship [...] 30 mcg/0.3 mL dose 11/09/2020 completed Soraida Estancia null, PA - [facility] 02/09/2023 08:19:10 COVID-19, mRNA, LNP-S, PF, 30 mcg/0.3 mL dose 11/30/2020 completed Soraida Zane null, PA - [facility] 02/09/2023 08:19:10 COVID-19, mRNA, LNP-S, PF, 30 mcg/0.3 mL dose 06/03/2021 completed Soraida Est[place] null, PA - [facility] 02/09/2023 08:19:10 Influenza, split virus, quadrivalent, PF 05/15/2021 completed Soraida Zane null, PA - [facility] 02/09/2023 08:19:10 Past Encounters Encounter ID Performer Location Encounter Start Date Encounter Closed Date Diagnosis/Indication Diagnosis SNOMED-CT Code Diagnosis ICD10 Code Diagnosis Note [id number] [facility] [address] [address] 06/07/2022 11:50:25 06/07/2022 12:43:05 [id number] Jak Mensah [place] [address] [address] [place] [address] 02/09/2023 08:08:40 02/09/2023 08:46:53 Abscess 459515521 L02.91 Use the topical mupirocin on the area of the right groin.Very important to use warm compressed 4 times per day Please follow up with PCP or Urgent Care in 3-5 days if no improvemen t or if any new symptoms occur that are concerning . 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 the topical Cleomycin is helpful with early symptoms to prevent worsening. Can use in axilla or groin. Health Concerns Section Related Observation LastModified by Organization Detai ls LastModified Time None Recorded Concern Status LastModified by Organization Details LastModified Time None Recorded Advance Directives Directive None Recorded Payers Insurance Date Sequence Insurance Name Policy Number Policy Kinsey Covered Member ID Kinsey Member ID Guarantor Name 02/09/2023 1 [facility] [id number] Sera Valentine [id number] Sera Valentine Notes Date Note Type Note Provider Name and Address Organization Details Recorded Time 02/09/2023 text/html Skin Redness UCReported bypatient.Quality :painful;erythema tous;raised;warm Severity:worsenin g Onset:gradual onset Symptoms:no fever; no nausea; no vomiting;swelling Notes:6 days right groin. History of abscesses Jak Mensah MD [address] [place], [address], PA - [facility] 02/10/2023 14:04:32 OBGyn Episode No OBEpisode recorded.
--- OUTSIDE RECORDS SUMMARY | 2025-03-13 06:22 | XMS_ITS | Continuity of Care Document ---
Author Organization [facility] Address [address] [address] [place], [place] Phone [phone] Care Team Providers Care Fry Cook Name Role Phone Radha Randle MD Care [...] Social History Type Date Description Comments Sex Female Sex Unknown Allergies and adverse reactions Active Allergies Criticality Reaction Severity Comments Date Statins Unable to assess criticality ache 10/11/2014 Lisinopril Unable to assess criticality cough 10/11/2014 Sulfa Antibiotics Unable to assess criticality 06/18/2016 Ezetimibe Unable to assess criticality achiness Severe 12/23/2018 Repatha Unable to assess criticality URI sxs x1mo 10/04/2023 Medications Active Medications SIG Qnty Indications Order ing Provider Date Ozempic (2 MG/Dose)8mg/3ML Solution Pen-Inject give 2mg subcutaneously in skin once a week 3ml Mckenzie Aguilar M.D. 02/05/2025 Skin Prep WipesMisc use 2 pads apply to area for bandage daily 50units E11.Willard Aguilar M.D. 02/05/2021 Utidkstiafr1ps Tablets Take 1/2 To 1 Tablet By Mouth Every Day as Needed 90tabs Mckenzie Aguilar M.D. 12/28/2018 Freestyle Lite Blood Glucose Monitoring SystemDevice uad 1uncarlos eduardo E11Veda Aguilar M.D. 12/23/2018 Freestyle Lite TestStrips 1 strip every day 100units E11.Willard Aguilar M.D. 12/23/2018 Zwsetgsontf070id Tablets Take 1 Tablet ( 160MG ) By Mouth Daily. Unknown Vit D plans to stop since surgeon told her it was high(10/2024) Unknown Losartan Axvneeoic504ee Tablets 1 by mouth every day Unknown Tumeric body aches Unknown 0 Metformin YRT237gd Tablets Take 1 Tablet By Mouth Three Times A Day 270tabs Mckenzie Aguilar M.D. Multi Vitamin DailyTablets 1 by mouth every day Unknown [address] 1 by mouth every day 30tabs Unknown 000 Metoprolol Smrqkrii50ml Tablets TK 1 T PO bid Unknown History Medications Ozempic (1 MG/Dose)4mg/3ML Solution Pen-Inject Inject 1 MG Subcutaneously Every Week 3units Mckenzie Aguilar M.D. 12/27/2023 - 02/05/2025 Paalfnmiu4te/0.5ML Solution Pen-Inject inject 3 mg subcutaneously once a week 2ml E11.Willard Aguilar M.D. 12/16/2023 - 02/14/2024 Hevcotfyl2as/0.5ML Solution Pen-Inject inject 3 mg subcutaneously once a week 6ml Mckenzie Aguilar M.D. 11/05/2023 - 02/14/2024 Trulicity4.5mg/0.5ML Solution Pen-Inject 4.5mg once a week 2ml E11.8 Mckenzie Aguilar M.D. 07/09/2023 - 12/16/2023 Vorsjme963hh/ml Soln Prefill Syringe inject subcutaneously 140mg every month 1ml E78.5 Mckenzie Aguilar M.D. 07/09/2023 - 10/04/2023 E11.8 I25.9 Dfyujrez652cl/ml Solution Auto-Inject inject one pen (150mg) subcutaneously every 2 weeks 6ml E78.5 Mckenzie Aguilar M.D. 07/08/2023 - 07/09/2023 Otltchizh9ue/0.5ML Solution Pen-Inject inject 3.0mg subcutaneously once a week 6ml E11.8 Mckenzie Aguilar M.D. 05/24/2023 - 07/09/2023 Glaauodw95uc/ml Solution Auto-Inject inject one pen (75mg) subcutaneously every 2 weeks 2ml E78.5 Mckenzie Aguilar M.D. 02/15/2023 - 07/08/2023 Ozempic (1 MG/Dose)2mg/1.5ML Solution Pen-Inject 1mg subcutaneously every week 9ml E11.8 Mckenzie Aguilar M.D. 10/11/2019 - 01/12/2020 Jqdabuufb00xf Tablets Take 1 Tablet By Mouth Once A Day 30tabs E78.5 Mckenzie Aguilar M.D. 04/12/2019 - 01/12/2020 Trulicity1.5mg/0.5ML Solution Pen-Inject Inject 1.5MG Subcutaneously Every Week 6ml E11Ruby8 Mckenzie Aguilar M.D. 12/26/2018 - 05/24/2023 Losartan Ihszceiqa13go Tablets 1 by mouth every day Mckenzie Aguilar M.D. 12/23/2018 - 10/04/2023 Ydjcyir0eb/Dose Solution Pen-Inject inject 1mg once a week 9ml E11.8 Mckenzie Aguilar M.D. 12/23/2018 - 12/26/2018 Trulicity0.75mg/0.5ML Solution Pen-Inject 0.75 mg subcutaneous every week 6units E11.8 Mckenzie Aguilar M.D. 10/19/2016 - 12/23/2018 Pnizreict13sn Tablets Take 1 Tablet By Mouth Once A Day 30tabs E78.5 Mckenzie Aguilar M.D. 09/25/2016 - 12/23/2018 Dppme18sc Tablets take 1 tablet by mouth once a day 30tabs E78.5 Mckenzie Aguilar M.D. 06/18/2016 - 09/25/2016 Uskkucozxow7qi Tablets Take 1 Tablet By Mouth Daily 90tabs Mckenzie Aguilar M.D. 01/21/2016 - 06/18/2016 Mvit PakMela Facundo in Am Aime Aguilar M.D. 12/18/2015 - 06/18/2016 Titecde0fp Tablets 1 by mouth every day-no substitution. 90tabs E78.5 Mckenzie Aguilar M.D. 12/18/2015 - 10/19/2016 Hfinimb53du Tablets take 1 tablet by mouth daily. E78.5 . 10/11/2014 - 12/18/2015 Oaymabgfhrf3lc Tablets Take 1 Tablet By Mouth Daily 90tabs Mckenzie Aguilar M.D. 02/16/2014 - 12/18/2015 Coq10 Gummies Uhevh37uh Chewtabs ?amt Unknown 0 - 02/14/2024 Plexus diet med drink E11.8 Unknown - 11/10/2022 Krill Ipc425zt Capsules 1/d Unknown - 11/10/2022 Pwgbaoav607yi Capsules 1/d Unknown - 12/23/[address] SEALS 1 C PO qd Unknown - 10/19/2016 Doxycycline Rkzwwjejnht967mp Capsules Unknown - 06/18/2016 Mvit/[place] Epa/Cell Healy/Provexcv/Recover AlMela Facundo packet of pills each night Unknown - 06/18/2016 Kypanxytmo814lw Capsules Annabel Randle - 10/10/2014 Amciuni97og Tablets take 1 tablet by mouth daily. nAnabel Randle - 10/11/2014 Doxycycline Pnlcqlz216wg Tablets Unknown - 10/10/2014 Losartan Udlhewoqg53cq Tablets 1 by mouth every day Unknown - 12/23/2018
[2025-03-13 07:33] LABS: Hemoglobin A1C 195.8695 umol/L; Total Hemoglobin (HGBA1C) 4038.4813 umol/L
[2025-03-13 07:56] LABS: Cholesterol 253 mg/dL (<200); HDL Cholesterol 32 mg/dL (>40); Triglycerides 385 mg/dL (<150)
[2025-03-13 08:12] LABS: Thyroid Stimulating Hormone 0.35 uIU/mL (0.32-4.0)
== END 2025-03-13 06:21 | disposition home or self-care (01) ==
LOC: HO.LAB 06:20
PROVIDERS: PCP Nurse Practitioner Family; Visit Provider Internal Medicine Endocrinology, Diabetes & Metabolism
DX: E04.0 Nontoxic diffuse goiter (principal); E11.8 Type 2 diabetes mellitus with unspecified complications
CPT/HCPCS: 36415; 80061; 83036; 84443